=== PATIENT | female | born 1960 | race Caucasian/White ===

== ENCOUNTER 2025-01-01 07:55 | Inpatient (IN) | payer BC, SELFPAY ==
--- NOTE | 2025-01-01 | XR_ITS ---
Examination: MRI of brain with intravenous contrast TECHNIQUE: Multiple axial sagittal coronal MR images obtained including small [id number] images centered at the pituitary Exam date and time: January 01, 2025 1315 hours INDICATIONS: Onset acute diplopia and ptosis left eye dizziness nausea, suspicious for left para cavernous 10 x 18 mm mass on MRI brain January 01, 2025 1124 hours FINDINGS: There appears to be subtle additional enhancement in the anterior left para cavernous region on axial image 8 of 26, sagittal image 13 and 19 and coronal images 6 oh 17, measuring 15 x 10 x 16 mm IMPRESSION: Suspicious for abnormal enhancement in the anterior left para cavernous region, 15 x 10 x 16 mm, consider early sphenoid ridge meningioma, recommend neurology consultation and follow-up brain MRI, pre and postcontrast in 3 months
--- NOTE | 2025-01-01 | XR_ITS ---
Examinations: MRI Brain without intravenous contrast. MRA brain without intravenous contrast. MRA carotids without intravenous contrast 3-D vascular reconstructions Date and time of exam: January 01, 2025 1124 hours INDICATIONS: Onset acute diplopia, ptosis left eye, dizziness nausea elevation headaches today Technique: Multiple axial and sagittal images of the brain have been obtained MRA brain carotid images without contrast obtained, including 3-D postprocessing, vascular maximum intensity projection images Findings: [place] is not enlarged. The optic chiasm and infundibular stalk are not remarkable. Prepontine and interpeduncular cisterns are not enlarged. No localized enlargement of the medulla or nette. Fourth ventricle and cerebellar tonsils normal in position. (Left para cavernous hyperintense mass, axial image 6, sagittal image 13, measuring 10 x 18 mm Fourth ventricle is midline. Mass in the cerebellopontine angle region is not evident. 7th and 8th nerve complexes exhibits symmetry. Globes are symmetrical with no retro-orbital mass. Increased white matter signal evident, scattered punctate foci increased signal in the white matter Diffusion-weighted images demonstrate no focus of restricted diffusion Mass-effect upon the ventricular system is not identified. MRA carotid images degraded by patient motion. MRA brain images no large vessel occlusions or definite aneurysm Impression: Negative for acute hemorrhage mass effect or midline shift No acute infarct Scattered punctate foci increased signal in the white matter likely chronic microvascular white matter change Left para cavernous hyperintense mass, 10 x 18 mm, this patient should return for postcontrast small [id number] high-resolution images centered at the sella turcica
[2025-01-01 08:12] VITALS: BP 166/85; PULSE 74; RESP 18; TEMP 36.6; O2SAT 97
[2025-01-01 08:16] VITALS: BMI 32.9
--- NOTE | 2025-01-01 08:16 | EKG_ITS ---
[facility] Test Date: 2025-01-01 Pat Name: ERICK MORGAN Department: Room: - Gender: Female Vocal Performer: : 1960 Requested By: Gautam Sheffield (MYLA) Order Number: [id number] Reading MD: Gautam Sheffield (SUPERVISOR SALVAGE) Measurements Intervals [place] Rate: 65 P: 50 NM: 173 QRS: -46 QRSD: 113 T: -3 QT: 426 QTc: 443 Interpretive Statements SINUS RHYTHM PATTERN CONSISTENT WITH PULMONARY DISEASE LEFT ANTERIOR FASCICULAR BLOCK [QRS AXIS <= -45, QR IN I, RS IN II] No previous ECG available for comparison /[id number]/S0/[id number].pdf
--- NOTE | 2025-01-01 08:16 | XR_ITS ---
Examination: CT brain head without contrast. 2-D sagittal coronal reconstructions Date and time of exam:January 01, 2025 0907 hours INDICATIONS: Headaches blurred vision beginning this morning CTDI: vol (mGy):47.7 DLP: (mGycm):938 Technique: Multiple CT axial sections of the brain have been obtained, 5 mm slice thickness. Contrast has not been administered. 2-D sagittal, coronal reconstructions have been obtained Low dose protocols were performed. One or more of the following dose reduction techniques were used; automated exposure control, adjustment of the mA and/or KV according to patient size, use of iterative reconstruction technique. Findings: No significant ventricular enlargement. Intra-axial or extra-axial hemorrhage density is not seen. No mass effect or midline shift Basal cisterns are not remarkable. Fourth ventricle is midline. Cranial vault intact. Chronic ethmoid sinusitis Impression: Negative for acute hemorrhage, mass effect or midline shift As clinically warranted, consider brain MRI follow-up, stroke protocol
[2025-01-01 08:33] LABS: Collection Type, Urine Clean Catch; Squamous Epithelial Cell,Urine 0 /hpf (0-5)
[2025-01-01 08:51] LABS: Bilirubin,Urine Negative (Negative); Blood,Urine Negative (Negative); Clarity,Urine Clear (Clear/Hazy); Color,Urine Colorless (Lt Yel-Yel); Glucose, Urine Negative (Negative); Ketones,Urine Negative (Negative); Leukocyte Esterase,Urine Negative (Negative); Nitrite,Urine Negative (Negative); PH,Urine 6.5 (5.0-7.0); Protein,Urine Negative (Neg - Trace); RBC,Urine < 1 /hpf (0-3); Specific Gravity,Urine 1.005 (1.001-1.035); Urobilinogen,Urine Negative mg/dL (0.0-1.0); WBC,Urine < 1 /hpf (0-5)
[2025-01-01 08:52] LABS: Amphetamine/Methamp Scrn,U Negative (Negative); Barbiturate Screen,Urine Negative (Negative); Benzodiazepines Screen,Urine Negative (Negative); Benzoylecgonine Screen, Ur Negative (Negative); Fentanyl Screen,Urine Negative (Negative); Opiate Screen,Urine Negative (Negative); THC Screen,Urine Negative (Negative)
--- NOTE | 2025-01-01 09:54 | PD.EDADULT ---
ED General RME/HPI General Chief complaint: Dizziness Stated complaint: DIZZY, NAUSEA, SEEING DOUBLE, H/A RIGHT SIDE HEAD; Arrival date/time: 01/01/25 07:55 RME / HPI RME / HPI narrative: 64 year old female presents to the ED for complaint of dizziness beginning at 12:30 AM and worsening after waking at 05:45 AM today. Patient mentioned she was at her usual state of health yesterday and drove from [place] last night, arriving at 10:15PM. No complaints at that time. State at about 12:30AM, she began to feel a slight headache and dizziness. However significantly worse after waking at 05:45 AM. Described dizziness as a swaying sensation and like I just got off the teacup ride at [facility] . Accompanied by a headache and double vision. Additionally stated this morning she noted she was having difficulty opening her left eye with pressure sensation and the left pupil was dilated. Denies any loss of sensation or movement, head injury, change in speech, nausea, vomiting, abdominal pain, or other associated symptoms. Related Data Allergies Allergy/AdvReac Type Severity Reaction Status Date / Time No Known Allergies Allergy Verified 01/01/25 08:02 Review of Systems Review of Systems Narrative Review of Systems: Constitutional: DENIES; Fevers Eyes: SEE HPI +double vision, difficulty opening the left eye DENIES; Loss of vision Head/Ear/Nose: DENIES; Loss of hearing Throat: DENIES; Dysphagia Cardiovascular: DENIES; Chest pain, dyspnea or syncope Respiratory: DENIES; Shortness of breath Gastrointestinal: DENIES; Rectal bleeding or melena. Genitourinary: DENIES; Dysuria (painful or difficult urination) Musculoskeletal: DENIES; Arthralgia (pain in a joint),; Skin: DENIES; Rash Neurological: DENIES; Loss of function or movement Psychiatric: DENIES; recent major life stressor, emotional problem, illicit drug use or abuse Endocrinology: DENIES; Weight change Hematologic/Lymphatic: DENIES; Abnormal bruising Allergic/Immunologic: DENIES; Urticaria (hives) Past Medical History Past Medical History CARDIAC: Positive Cardiac Disorders and Hypercholesterolemia GASTROINTESTINAL: Positive Gastrointestinal Disorders and Polyps MUSCULOSKELETAL: Positive Musculoskeletal Disorders, Arthritis and Fractures ENDOCRINE: Positive Endocrine Disorders and Hypothyroidism (prev took meds. No longer taking) HEMATOLOGIC: Positive Blood Disorders and Anemia (d/t bleeding) PSYCHO/SOCIAL: Positive Depression and Anxiety OTHER HISTORY: Positive Shingles, Chicken Pox, Mumps and Cancer Surgical History SURGICAL: Positive Angiogram and Hysterectomy Social History SMOKING STATUS: Never smoker ED Exam Narrative Physical exam: Physical Exam: General: The vital signs were reviewed. The patient is non-toxic, in no apparent distress and appears healthy with a patent airway, no respiratory distress and has no apparent circulatory problems. Head & Scalp: Normocephalic, atraumatic. Face: Appears normal and is without lesions, deformity. Ears: Left external pinna appears normal. Right external pinna appears normal. Eyes: The pupil is 2 to 3 mm on the right reactive and 7 to 8 mm and reactive on the left but obviously has unequal pupils with the left revealing mydriasis. Furthermore there is ptosis on the left. And finally there is diplopia and there is loss of medial movement of the left eye but normal lateral movements of both eyes The sclera is anicteric. No obvious photophobia. The Left and Right Orbit/Lid/Conjunctiva appears normal without swelling, discoloration or injection. Nose: The nose is without deformity, discharge or tenderness; Throat: Appears normal. The mucous membranes are pink and moist without exudates, redness or mass seen. The tongue appears normal. Neck: The neck is supple and no apparent mass or adenopathy. Chest: The chest wall is normal in size and symmetry and has no chest wall tenderness or crepitus. The patient displays normal ventilator effort without retractions, accessory muscle use and has adequate air movement bilaterally with no wheezes and no rales. Cardiovascular: Regular rate and rhythm; No murmurs, rubs, or gallops; Gastrointestinal: The abdomen appears normal. No obvious hernias or mass. The abdomen is soft and benign, non-distended, with no pain, no guarding and no rebound tenderness. Bowel sounds are present and normal sounding. No CVA tenderness. Genitourinary: Back/Spine: Extremities/Musculoskeletal/lymphatic: The bilateral upper and lower extremities are warm. There is no evidence of arterial insufficiency. There is no evidence of venous insufficiency/edema. The patient spontaneously moves bilateral upper and lower extremities with no pain and no limitation of movement. There is no apparent, injury or trauma. Skin: The skin is warm, dry and intact. No rashes. No petechia. No purpura. No abnormal bruising. The color is appropriate with no cyanosis. Mental status/Psychiatric: Mental status is appropriate for age. The patient has no apparent delusions, visual hallucinations, no apparent audible hallucinations. The patient has no apparent suicidal thoughts/ideation and no apparent homicidal thoughts/ideation. Neurological: The patient is awake, alert, interactive, cordial, cooperative and is oriented to name and situation. Loss of medial rectus movement on the left eye with left eye ptosis and left eye mydriasis. There is normal facial sensation. The uvula is midline. There is no loss of sensation to the facial structures. There is no nystagmus noted. The patient follows commands and answers historical question with no impairment. There is no visual disturbance apparent. The pupils are equal and reactive bilaterally with normal eye movements and no diplopia The bilateral upper and lower extremities have normal strength, normal range of motion and normal functioning. The gait, station and balance a are reported to be normal. Course Quality Measures none Orders Category Date Time Status CT Screening NOW Care 01/01/25 12:46 Active EKG (ED ONLY) *Do not use* NOW Care 01/01/25 08:16 Completed MRI Screening NOW Care 01/01/25 10:31 Active MRI Screening NOW Care 01/01/25 12:46 Active Consult to Neurology / Tele-Neurology Stat Cons 01/01/25 14:[address] chest abdomen pelvis w Stat Exams 01/01/25 12:[address] head/brain wo con Stat Exams 01/01/25 08:16 Completed EKG (ED Only) Stat Exams 01/01/25 08:16 Draft MR brain wo MRA brn wo munguia wo Stat Exams 01/01/25 Completed MR head/brain w con Stat Exams 01/01/25 00:00 Completed B-Type Natriuretic Peptide Stat Lab 01/01/25 09:45 Completed CBC Stat Lab 01/01/25 09:45 Completed Comprehensive Metabolic Panel Stat Lab 01/01/25 09:45 Completed Drug Screen,Urine Stat Lab 01/01/25 08:25 Completed Magnesium Stat Lab 01/01/25 09:45 Completed Partial Thromboplastin Time Stat Lab 01/01/25 09:45 Completed Prothrombin Time with INR Stat Lab 01/01/25 09:45 Completed Troponin I Stat Lab 01/01/25 09:45 Completed Urinalysis Stat Lab 01/01/25 08:25 Completed VBG [Venous Blood Gas] Stat Lab 01/01/25 09:45 Completed Vital Signs Vital signs: Vital Signs Temperature 97.8 F 01/01/25 08:12 Pulse Rate 74 01/01/25 08:12 Respiratory Rate 18 01/01/25 08:12 Blood Pressure 166/85 H 01/01/25 08:12 Pulse Oximetry (%) 97 01/01/25 08:12 Oxygen Delivery Method Room Air 01/01/25 08:12 Critical Care Time Critical Care Time Critical Care Time: Yes Total Critical Care Time (min.): 50 Attestation: The high probability of sudden, clinically significant deterioration in the patient's condition required the highest level of my preparedness to intervene urgently. The services I provided to this patient were to treat and/or prevent clinically significant deterioration. Services included the following: chart data review, reviewing nursing notes and/or old charts, documentation time, work and family life consultant collaboration regarding findings and treatment options, medication orders and management, direct patient care, vital sign assessments and ordering, interpreting and reviewing diagnostic studies and lab tests. Aggregate critical care time includes only time during which I was engaged in work directly related to the patient's care, as described above, whether at bedside or elsewhere in the Emergency Department. It did not include time spent performing other reported procedures or the services of residents, students, nurses or physician assistants. Discharge Plan Plan Patient Disposition: Admit Acute Care w/in Hospital Disposition Comment: Hospitalist admit neurology Dr. Mart to consult. 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 Dickinson. This patient presents with acute onset of left eye ptosis mydriasis and loss of medial rectus movement of the left eye with diplopia with all started about midnight last night and presented to the ER approximately 7.5- 8 hours after the onset of symptoms. She is therefore not a tPA candidate and a stroke alert was not called. Since the symptoms appear to be localized to the cranial nerve #3 I also do not call a stroke alert. CT was already done which was negative. I discussed with Dr. Mart as I feel an MRI would be a more beneficial at this time and we agree the MRA should be included to rule out any aneurysm. I contacted MR and spoke with Bret and asked that they would come get this patient OLVIN Clinically patient is comfortable following commands has no obvious dysmetria. Reports to be ambulating without any difficulty other than a simple swaying motion. CBC was within normal is PT/INR within neurolyse pH is 7.29 with a pCO2 of 61 electrolytes are within normal limits kidney function is normal. Transaminases are slightly elevated 45 and 55 with a normal total bilirubin of 0.7. Urine drug screen was negative urinalysis was unremarkable. Head CT was done which reveals no acute. See report. After the initial workup we need to extend the workup to rule out aneurysm or any tumor so MRI/MRA is ordered and pending as of 1040 hrs. Patient was updated and aware of situation 1250: We reviewed todays head CT and MRI/MRA results, aware of plan to order MRI with contrast. Recontacted Dr. Mart at 1540 hrs. to review the MRI with contrast as I have no formal read at this time. Evidently this is a complex case requiring teleneurology to over read this. It most likely looks like some type of tumor or mass pushing on the nerves causing the symptoms or at least that is the best interpretation at this time. Also [address] of the chest abdomen pelvis is still pending to rule out any primary neoplasm that may be metastasized to the brain although this is much less likely diagnosis per Dr. Mart. Further consultation with Dr. Mart feels this is not a meningioma although the x-ray report from Dr. Lopez feels there was some enhancement possibly suggesting a meningioma. At this time the patient be admitted here for an LP and steroids per Dr. Mart and does not require transfer to a neurosurgeon at this time these are the plans communicated from our neurologist Dr. Mart who is on-call. Clinical Information Provided by: patient Medical Records reviewed None (No previous ED visits for review ) Meds/Rx considered, not ordered None Labs/Rad/Tests considered, not ordered None Chronic Illness/Social Conditions which may negatively complicate care or outcome(s)-explain: None or not applicable EKG EKG Interpretation(s): EKG at 08:23 AM. Interpreted by me shows sinus rhythm, rate 65, no STEMI. Labs Labs: Interpreted by me Imaging Imaging interpretation: Interpreted by me Imaging Interpretation(s): Ordering Physician: Nettie HURT)Gautam NP Date of Service: 01/01/25 Procedure(s): CT head/brain wo con Accession Number(s): [id number] cc: Nettie HURT),Gautam LANZA; Armando Del Angel MD; NO PRIMARY/FAMILY,PHYSICIAN~ Examination: CT brain head without contrast. 2-D sagittal coronal reconstructions Date and time of exam:January 01, 2025 0907 hours INDICATIONS: Headaches blurred vision beginning this morning CTDI: vol (mGy):47.7 DLP: (mGycm):938 Technique: Multiple CT axial sections of the brain have been obtained, 5 mm slice thickness. Contrast has not been administered. 2-D sagittal, coronal reconstructions have been obtained Low dose protocols were performed. One or more of the following dose reduction techniques were used; automated exposure control, adjustment of the mA and/or KV according to patient size, use of iterative reconstruction technique. Findings: No significant ventricular enlargement. Intra-axial or extra-axial hemorrhage density is not seen. No mass effect or midline shift Basal cisterns are not remarkable. Fourth ventricle is midline. Cranial vault intact. Chronic ethmoid sinusitis Impression: Negative for acute hemorrhage, mass effect or midline shift As clinically warranted, consider brain MRI follow-up, stroke protocol Dictated By: Armando Del Angel MD Signed By: <Electronically signed by Armando Del Angel MD in OV>01/01/25 0939 Consultations/Discussions re: Management Consult #1: Date/time: 01/01/25 10:27 am Physician, specialty, service, details: I spoke with neurologist Dr. Mart. Discussed patients PMHx, HPI, ED course, exam findings, labs, and radiology results. Requesting MRI/MRA. Consult #2: Date/time: 01/01/25 10:29 am Physician, specialty, service, details: I spoke with radiologist Dr. Del Angel regarding MRI/MRA order. States w/o contrast should be fine. Consult #3: Date/time: 01/01/25 10:32 am Physician, specialty, service, details: I spoke with cardiopulmonary technologist chief Bret and requested patients MRI be performed next. Consult #4: Date/time: 01/01/25 12:36 pm Physician, specialty, service, details: I spoke with radiologist Dr. Del Angel regarding MRI results, he is requesting MRI with contrast. Consult #5: Date/time: 01/01/25 2:27 pm Physician, specialty, service, details: I again spoke with neurologist Dr. Mart. Discussed MRI/MRA results and aware of the pending MRI with contrast. Diagnosis Diagnoses ruled out: Consult #6 01/01/2025 at 3:45 pm. Called cardiopulmonary technologist chief and asked ETA for brain MRI to be read. States radiologist Dr. Del Angel has sent images to [facility] and at this time pending report. Consult #7 01/01/2025 at 4:10 pm. I again spoke with neurologist Dr. Mart. States she has reviewed the brain MRI with contrast and the official report from [facility]. States she will be performing an LP later today to rule out an inflammatory process. She agrees to consult for admission here. Consult #8 01/01/2025 at 4:20 pm. I spoke with resident Dr. Trjeo working with Dr. Jones. Discussed patients PMHx, HPI, ED course, exam findings, labs, and radiology results. The hospitalist agree to accept the patient for admission. Consult #9 01/01/2025 at 4:55 pm. I spoke with radiologist Dr. Alicea brain MRI report.
[2025-01-01 10:01] VITALS: BP 126/82; PULSE 67; RESP 17; TEMP 36.5; O2SAT 95
[2025-01-01 10:01] LABS: Base Excess, Venous 1 (-3-3); O2 Saturation, Venous 68 % (96-97); PCO2, Venous 61 mmHg (36-56); PO2, Venous 37 mmHg (15-58); pH, Venous 7.29 (7.33-7.66)
[2025-01-01 10:09] LABS: Basophils % (Auto) 1 % (0-2.5); Eosinophils # (Auto) 0.2 Thou/mm3 (0.0-0.5); Eosinophils % (Auto) 3 % (0-10); Hematocrit 42.1 % (36.0-46.0); Hemoglobin 15.1 g/dL (12.0-16.0); Immature Granulocytes % (Auto) 0 % (0-0); Lymphocytes # (Auto) 2.4 Thou/mm3 (1.0-4.8); Lymphocytes % (Auto) 41 % (10-50); Mean Corpuscular HGB Conc 35.9 g/dl (31.0-37.0); Mean Corpuscular Hemoglobin 31.9 pg (25.0-35.0); Mean Corpuscular Volume 89 fL (80-100); Monocytes # (Auto) 0.5 Thou/mm3 (0.0-0.8); Monocytes % (Auto) 9 % (0-12); Neutrophils # (Auto) 2.7 Thou/mm3 (1.8-7.7); Neutrophils % (Auto) 46 % (37-80); Nucleated Red Blood Cell % 0 /100 WBC (0); Platelet Count 223 Thou/mm3 (140-440); RDW Standard Deviation 40.8 fL (36.4-46.3); Red Blood Count 4.74 Miln/mm3 (4.00-5.20); White Blood Count 5.9 Thou/mm3 (3.6-11.0)
[2025-01-01 10:28] LABS: Prothrombin Time 10.6 Seconds (9.0-12.2)
[2025-01-01 10:32] LABS: Alanine Aminotransferase 55 U/L (10-49); Albumin, Serum 4.5 gm/dL (3.4-4.8); Albumin/Globulin Ratio 1.6 (1.2-2.2); Alkaline Phosphatase 95 U/L (46-116); Anion Gap 8 (7-16); Aspartate Amino Transferase 45 U/L (0-34); BUN/Creatinine Ratio 20 Ratio (12-20); Bilirubin,Total 0.7 mg/dL (0.3-1.2); Blood Urea Nitrogen 16 mg/dL (9-23); Calcium 9.5 mg/dL (8.3-10.6); Calcium (Corrected) 9.5 mg/dL (8.5-10.1); Carbon Dioxide 26.4 mMol/L (20.0-31.0); Chloride 108 mMol/L (98-107); Creatinine (Component) 0.8 mg/dL (0.6-1.3); Estimated Creatinine Clearance 70.3 mL/min (>60); Globulin 2.8 gm/dL (2.3-3.5); Glucose 119 mg/dL (74-106); Magnesium 2.1 mg/dL (1.6-2.6); Osmolality,Calculated 285 (275-295); Potassium 3.8 mMol/L (3.4-5.1); Sodium 142 mMol/L (136-145); Total Protein 7.3 gm/dL (5.7-8.2); Troponin I < 0.002 ng/mL (0.0-0.045); eGFR > 60 See Note
[2025-01-01 10:36] LABS: B-Type Natriuretic Peptide < 20 pg/mL (0-100)
--- NOTE | 2025-01-01 10:46 | PC.NURSE ---
Biomedical Scientist: MR ordered - MR to take patient next. Spoke with RN to assure completion of screening form.
--- NOTE | 2025-01-01 12:45 | XR_ITS ---
Examination: CT chest with intravenous contrast CT abdomen with intravenous contrast CT pelvis with intravenous contrast 2-D coronal and sagittal reconstructions Time of exam: January 01, 2025 at 1508 hours, q.d. headaches shortness of breath chest pain today CTDI: vol (mGy) : 10 DLP: (mGycm): 694 Technique: Multiple axial images of the chest, abdomen and pelvis with intravenous contrast, 3.0 mm slice thickness. Images obtained post intravenous injection Isovue 370 60 cc. 2-D sagittal and coronal reconstructions. Low dose protocols were performed. One or more of the following dose reduction techniques were used; automated exposure control, adjustment of the mA and/or KV according to patient size, use of iterative reconstruction technique. Findings: Thoracic aorta pulmonary arteries intact No pulmonary artery filling defects No paratracheal tracheobronchial or bronchopulmonary adenopathy 3 mm, 2 mm pulmonary nodules right upper lobe No pneumonia or pulmonary edema No visualized liver splenic or renal lesion No gallstones No pancreatic or adrenal mass Aortic calcification no aneurysmal dilatation Normal appendix No bowel obstruction No diverticulitis Contracted urinary bladder Normal appendix No pelvic mass Moderate to advanced disc narrowing L5-S1 IMPRESSION: Small pulmonary nodules right upper lobe, with this study as baseline recommend 6 month follow-up CT chest without contrast No mediastinal lymphadenopathy No renal or ureteral calculi, no hydronephrosis Normal appendix No bowel obstruction diverticulitis or free air
[2025-01-01 14:26] VITALS: BP 143/87; PULSE 67; RESP 17; TEMP 36.6; O2SAT 96
--- NOTE | 2025-01-01 15:08 | PC.NURSE ---
PT TO CT
--- NOTE | 2025-01-01 15:53 | PRELIM_ITS ---
MRI of the brain with intravenous gadolinium. January 01, 2025 at 1315 hours Clinical history: Further evaluation of abnormal MR. Comparison: Compared with prior non-contrast MRI brain study performed earlier today at 1124 hours. Findings and Impression: No abnormal meningeal or parenchymal enhancement. Report Electronically Signed By: Jenaro Valdovinos 01/01/2025 3:51:30 PM [EST]
[2025-01-01 18:13] VITALS: BP 130/89; PULSE 70; RESP 20; TEMP 36.5; O2SAT 95
--- NOTE | 2025-01-01 18:36 | ESHP_ITS ---
<Statement entered by Gil Jones MD - 01/07/25 13:39> I reviewed above note and agree with findings and plans. I have also personally examined the patient with medicine team and went over assessment and plan with medical team including internal salesperson and resident physician. <Statement entered by Jewel Trejo MD - 01/04/25 14:04> Senior Resident Attestation: I supervised/discussed management plan with internal salesperson physician Dr. Chen, and was involved in the care of this patient. I personally saw and examined the patient and discussed the assessment and plan with the entire medicine team, including my attending. I agree with the assessment and plan as documented. Patient is a 64 years old female with PMH of familial hyperlipidemia, CAD, depression presented to the ED due to ptosis, mydriasis and double vision in left eye, CT and MRI showed hyperdense mass in the anterior left para cavernous region 10x18 mm, neurology was consulted and she was admitted for neurological work up. Patient's care was discussed with attending physician, Dr. Jones. Jewel Trejo MD PGY-2. Documentation for date of: 01/01/25 HPI History of Present Illness History of present illness: Ms. Ruff is a 64 year old female with past medical history significant for familial hyperlipidemia and single-vessel CAD angio was done in 2019 depression presented to the ED after noticing ptosis of left eye. Patient states that she has been feeling dizzy last night however she had an think much of it she thought it was due to fatigue and this morning she woke up at around 5 AM and noticed she was having double vision and ptosis of left eye. Patient states she also noticed her left pupil was dilated and worsening double vision. She also noticed she has worsening blurry vision on the left eye than the right. Denies any hemiparesis or facial droop or slurred speech. Pt noticed she has been nauseas during this duration but denies vomiting. Patient denies any previous history of similar episodes. Patient denies any pain in the left eye however she states that if feels like pressure and heaviness in that eye. Patient states when she ambulates she feels like I just got off the teacup ride at [employer] . Pt denies any recent illness or recent travel history. However patient did noticed that recently for the past 3 months she has noticed a feeling and hearing water/liquid moving in her left ear and she has noticed she has muffled hearing in that ear. Patient denies any pain but she states that there is this aching in her left ear. Patient denies any chest pain, palpitations or syncopal episodes. Patient denies any changes to her bowel habits, fever, chills or night sweats. ED course: In the ED initial vitals include blood pressure 166/85, pulse 74, respirations 18 patient is saturating on room air Labs are significant for AST 45 and ALT 55 Urine analysis and urine toxicology is negative Brain MRI: Suspicious for abnormal enhancement in the anterior left para cavernous region, 15 x 10 x 16 mm, consider early sphenoid ridge meningioma. Brain MRI with MRA: Negative for acute hemorrhage mass effect or midline shift, No acute infarct, Scattered punctate foci increased signal in the white matter likely chronic microvascular white matter change, Left para cavernous hyperintense mass, [address] Head: Negative for acute hemorrhage, mass effect or midline shift as clinically warranted, consider brain MRI follow-up, stroke protocol CT Chest/ABdomen/Pelvis: Small pulmonary nodules right upper lobe, with this study as baseline recommend 6 month follow-up CT chest without contrast No mediastinal lymphadenopathy No renal or ureteral calculi, no hydronephrosis Normal appendix No bowel obstruction diverticulitis or free air EKG: Sinus rhythm with no acute ST or T wave changes In the ED neurologist Dr. Mart was consulted and recommended to admit the patient for further workup PMH: familial hyperlipidemia and single-vessel CAD, depression PSH: C- section x1, and hysterectomy SH: Patient denies any smoking history including tobacco and marijuana, denies illicit drug use and drinks alcohol socially Home meds: Atorvastatin 80 mg daily, ezetimibe 10 mg daily, Repatha, fluoxetine 10 mg daily, bupropion to 50 mg daily, gabapentin 900 mg at bedtime, famotidine 20 mg twice daily, ivermectin topical Review of Systems Review of Systems Systems Reviewed: All systems reviewed, normal except as documented Exam Vital Signs Temp Pulse Resp BP Pulse Ox O2 Del Method 97.7 F 70 20 130/89 H 95 Room Air 01/01/25 18:13 01/01/25 18:13 01/01/25 18:13 01/01/25 18:13 01/01/25 18:13 01/01/25 18:13 Narrative Exam GENERAL: A&Ox3 . Awake, Not in acute distress NEURO:Ptosis and mydriasis noted of the left eye, no other focal neurological deficits HEENT: Atraumatic, Normocephalic. mucous membranes moist. Eyes open, symmetrical, & clear HEART: Normal Heart Sounds LUNGS: Clear to auscultation with no wheezing or crackles. ABDOMEN: soft, non-distended, non-tender, bowel sounds heard, no guarding or rebound tenderness SKIN: No Rash or ecchymoses, Verrucae Vulgaris noted bilaterally on hands EXTREMITIES: No edema, tenderness, able to move all 4 extremities, pedal pulses palpated Results: Labs 01/01/25 09:45 01/01/25 09:45 Labs: Short CBC 01/01/25 Range/Units 09:45 WBC 5.9 (3.6-11.0) Thou/mm3 Hgb 15.1 (12.0-16.0) g/dL Hct 42.1 (36.0-46.0) % Plt Count 223 (140-440) Thou/mm3 BMP 01/01/25 09:45 Sodium 142 Potassium 3.8 Chloride 108 H Carbon Dioxide 26.4 BUN 16 Creatinine 0.8 Glucose 119 H Calcium 9.5 Cardiac Enzymes 01/01/25 Range/Units 09:45 Troponin I < 0.002 (0.0-0.045) ng/mL Liver Function 01/01/25 Range/Units 09:45 Total Bilirubin 0.7 (0.3-1.2) mg/dL AST 45 H (0-34) U/L ALT 55 H (10-49) U/L Alkaline Phosphatase 95 (46-116) U/L Albumin 4.5 (3.4-4.8) gm/dL Urine 01/01/25 Range/Units 08:25 Urine Color Colorless A (Lt Yel-Yel) Urine Clarity Clear (Clear/Hazy) Urine pH 6.5 (5.0-7.0) Ur Specific [place] 1.005 (1.001-1.035) Urine Protein Negative (Neg - Trace) Urine Glucose (UA) Negative (Negative) ABG Interpretation ABG results: 01/01/25 09:45 VBG pH 7.29 L VBG pCO2 61 H VBG pO2 37 VBG Base Excess 1 Quality Measures Quality Measures none Medications Home Medications and Allergies Allergies Allergy/AdvReac Type Severity Reaction Status Date / Time No Known Allergies Allergy Verified 01/01/25 08:02 Visit Medications Acetaminophen (Acetaminophen 325 Mg Tablet) 650 mg PO Q6H PRN PRN Reason: Fever >101.5 Stop: 01/31/25 18:05 Atorvastatin Calcium (Atorvastatin Calcium 20 Mg Tablet) 80 mg PO HS NICO Stop: 01/31/25 20:59 Bupropion HCl (Bupropion Hcl 100 Mg Tablet) 250 mg PO QDAY NICO Stop: 02/01/25 08:59 Ezetimibe (Ezetimibe 10 Mg Tablet) 10 mg PO QDAY NICO Stop: 01/31/25 18:44 Famotidine (Famotidine 20 Mg Tablet) 20 mg PO BID NICO Stop: 01/31/25 20:59 Fluoxetine HCl (Fluoxetine Hcl 10 Mg Capsule) 10 mg PO QDAY NICO Stop: 02/01/25 08:59 Ondansetron HCl (Ondansetron Inj 2 Mg/Ml Inj 2 Ml) 4 mg IV Q6H PRN; Protocol PRN Reason: NAUSEA OR VOMITING Stop: 01/31/25 18:05 Assessment & Plan Plan Ms. Ruff is a 64 year old female with past medical history significant for familial hyperlipidemia and single-vessel CAD angio was done in 2019 depression presented to the ED after noticing ptosis, Mydriasis and diplopia of left eye. Pt is admitted to the hospital for further neuro work up. #Ptosis #Mydriasis #Diplopia #Brain mass -Patient has noticed dizziness, diplopia of the left eye which progressed to ptosis and mydriasis this morning. Patient denies any other neurological symptoms including hemiparesis or facial droops. -Brain MRI: Suspicious for abnormal enhancement in the anterior left para cavernous region, 15 x 10 x 16 mm, consider early sphenoid ridge meningioma. -Brain MRI with MRA: Scattered punctate foci increased signal in the white matter likely chronic microvascular white matter change, Left para cavernous hyperintense mass, 10 x 18 mm -CT Head: Negative for acute hemorrhage, mass effect or midline shift as clinically warranted, consider brain MRI follow-up, stroke protocol -CT Chest/ABdomen/Pelvis: Small pulmonary nodules right upper lobe Plan: -Neurology consulted by ED, appreciated recommendations -Discussed with Neurology regarding transferring patient for neurosurgical intervention however per neuro would like pt to be admitted for further work up -Lumbar punction is planned for tonight by Neuro #Transiminitis -AST 45 adn ALT 55 -Pt denies any history of liver disease, denies RUQ pain -Will monitor daily CMP #Depression -resumed home fluoxetine and Bupropion #familial Hyperlipidemia #CAD, single vessel -Resumed pt's home Atorvastatin 80 mg daily, ezetimibe 10 mg daily and will hold rapatha (due to not available inpatient pharmacy) -resumed home aspirin -Lipid panel for am labs ordered -EKG is sinus rhythm with no acute ST or T wave changes #Pulmonary mass -CT of chest is evident of pulmonary nodules, however pt denies history of smoking tobacco -No previous imaging is available to compare -Pt will need to follow up outpatient for repeat imaging in 6 months and further work up if necessary -Cocci IgM ordered Health Maintenance Disposition: telemetry for further neuro work up DVT Prophylaxis: SCD QSHIFT GI Prophylaxis: Famotidine BID Diet: regular diet Lines: Peripheral lines Code status: Full Assessment and plan discussed with my senior resident Dr. Trejo & attending physician Dr. Robert Chen (PGY-1)- Internal medicine resident
[2025-01-01] MEDS: EZETIMIBE 10 MG TABLET PO (20:04)
[2025-01-01 21:52] LABS: Coccid Serology, CF CSF (UCD)* See Sep Rpt
[2025-01-01 22:09] VITALS: BP 132/81; PULSE 77; RESP 20; TEMP 36.6; O2SAT 98
[2025-01-01 22:41] LABS: Glucose,CSF 69 mg/dL (40-70); Protein Total,CSF 37 mg/dL (8-32)
--- NOTE | 2025-01-01 23:31 | PD.NEUROCONS ---
History of Present Illness Data of Consult Requesting Physician: Gil Jones MD Primary Care Provider: Physician No Primary/Family Consult Narrative History of present illness: 64 year old female presents to the ED for complaint of dizziness beginning at 12:30 AM and worsening after waking at 05:45 AM today. Patient mentioned she was at her usual state of health yesterday and drove from [place] last night, arriving at 10:15PM. No complaints at that time. State at about 12:30AM, she began to feel a slight headache and dizziness. However significantly worse after waking at 05:45 AM. Described dizziness as a swaying sensation and like I just got off the teacup ride at [facility] . Accompanied by a headache and double vision. Additionally stated this morning she noted she was having difficulty opening her left eye with pressure sensation and the left pupil was dilated. Denies any loss of sensation or movement, head injury, change in speech, nausea, vomiting, abdominal pain, or other associated symptoms. ER workup: CT, MRI brain, EEG, MRI, MRA cc:: cc: Gil Jones MD Review of Systems Review of Systems Systems Reviewed: All systems reviewed, normal except as documented Meds Home Medications and Allergies Home Medications ?Medication ?Instructions ?Recorded ?Confirmed ?Type aspirin 81 mg capsule 81 mg PO QDAY 01/01/25 01/01/25 History atorvastatin 80 mg tablet 80 mg PO QDAY 01/01/25 01/01/25 History bupropion HCl 150 mg tablet,12 hr See Rx Instructions .Route .COMPLEX 01/01/25 01/01/25 History sustained-release evolocumab 140 mg/mL subcutaneous 420 mg subcut .[id number] 01/01/25 01/01/25 History syringe (Repatha Syringe) ezetimibe 10 mg tablet (Zetia) 10 mg PO QDAY 01/01/25 01/01/25 History famotidine 10 mg tablet 10 mg PO QDAY 01/01/25 01/01/25 History fluoxetine 10 mg capsule 20 mg PO QDAY 01/01/25 01/01/25 History fluoxetine 20 mg capsule 10 mg PO QDAY 01/01/25 01/01/25 History gabapentin 600 mg tablet 900 mg PO HS 01/01/25 01/01/25 History metoprolol succinate 25 mg 25 mg PO QDAY 01/01/25 01/01/25 History tablet,extended release 24 hr Allergies Allergy/AdvReac Type Severity Reaction Status Date / Time No Known Allergies Allergy Verified 01/01/25 08:02 Exam - Neurology Vital Signs Temp Pulse Resp BP Pulse Ox O2 Del Method 98 F 77 20 132/81 H 98 Room Air 01/01/25 22:09 01/01/25 22:09 01/01/25 22:09 01/01/25 22:09 01/01/25 22:09 01/01/25 22:09 Narrative Exam GENERAL APPEARANCE: Well hydrated, well-nourished in no acute distress. HEENT: Normocephalic, atraumatic, extraocular movements intact. Pupils: Equal reacting to light and accommodation CARDIOVASULAR: Heart: S1, S2 heard, regular without S3-S4 or murmur no rubs or gallops. LUNGS/CHEST: Clear to auscultation bilaterally. No rails, rhonchi, or wheezing. Normal inspection. ABDOMEN: Soft, nontender, with normal bowel sounds. No pulsatile masses. No rebound, rigidity, or guarding. Normal inspection and palpation. EXTREMITIES: Normal inspection and palpation. No edema, clubbing or cyanosis. SKIN: Warm and dry without rashes. Normal inspection. MUSCULOSKELETAL: No cervical, thoracic, lumbar or midline bony tenderness. Normal inspection. NEURO: Alert, awake and oriented x3. Cranial nerves: II through XII grossly intact with the exception of partial left 3rd nerve palsy. Speech and language: Normal with no dysarthria or dysphasia. Motor system: Tone and bulk: Normal: Strength: 5 out of 5 in all 4 extremities; No pronator drift noted. Deep tendon reflexes: 2+ bilaterally symmetrical. Plantar reflex: Downgoing bilaterally. Sensory system: Intact to all modalities of sensation bilaterally. Coordination: Intact to kljhjg-clma-belrx and hglx-wvek-giss test bilaterally. No ataxia, no dysmetria, or dysdiadochokinesia noted. No intention tremors noted. Gait: Normal. Toe, heel, tandem walk all are normal. Romberg: Negative. No signs of meningeal irritation noted. PSYCHIATRIC: Normal mood and affect. Results Labs 01/01/25 09:45 01/01/25 09:45 Labs: Short CBC 01/01/25 Range/Units 09:45 WBC 5.9 (3.6-11.0) Thou/mm3 Hgb 15.1 (12.0-16.0) g/dL Hct 42.1 (36.0-46.0) % Plt Count 223 (140-440) Thou/mm3 BMP 01/01/25 09:45 Sodium 142 Potassium 3.8 Chloride 108 H Carbon Dioxide 26.4 BUN 16 Creatinine 0.8 Glucose 119 H Calcium 9.5 Cardiac Enzymes 01/01/25 Range/Units 09:45 Troponin I < 0.002 (0.0-0.045) ng/mL Liver Function 01/01/25 Range/Units 09:45 Total Bilirubin 0.7 (0.3-1.2) mg/dL AST 45 H (0-34) U/L ALT 55 H (10-49) U/L Alkaline Phosphatase 95 (46-116) U/L Albumin 4.5 (3.4-4.8) gm/dL Urine 01/01/25 Range/Units 08:25 Urine Color Colorless A (Lt Yel-Yel) Urine Clarity Clear (Clear/Hazy) Urine pH 6.5 (5.0-7.0) Ur Specific [place] 1.005 (1.001-1.035) Urine Protein Negative (Neg - Trace) Urine Glucose (UA) Negative (Negative) ABG Interpretation ABG results: 01/01/25 09:45 VBG pH 7.29 L VBG pCO2 61 H VBG pO2 37 VBG Base Excess 1 Assessment & Plan Assessment and plan (1) 3rd nerve palsy, partial: Status: Acute Assessment and plan: LP Labs to look for infection, inflammation, vascular/ischemic, neoplastic/demyelinating causes Added Decadran 4 mg bid. Plan to do Repeat MRI brain in 3-4 weeks. (2) Cavernous sinus tumor: Status: Acute Assessment and plan: nonenhancing mass in the left cavernous sinus, unlikely to be meningioma unless it is microcystic type.
--- NOTE | 2025-01-01 23:31 | PD.EVENT ---
Documentation for date of: 01/01/25 Date of procedure: 01/01/25 Pre-op diagnosis: Cavernous sinus lesion/3RD nerve palsy Consent signed by: Patient Position: lateral decubitus Prep: betadine Anesthesia: 1 % Lidocaine Sedation: none Needle size: 22ga Needle length: 3.5 Interspace: L3-4 Number of attempts: 1 Opening pressure: # cm H2O (19) Fluids mLs collected: 14 Fluid description: clear Complications: No Patient tolerance: tolerated the procedure well Procedure performed by: Zacarias Mart Condition: Stable Disposition: other (Med surg)
[2025-01-01] MEDS: ATORVASTATIN CALCIUM 20 MG TABLET 80 MG PO (23:59)
[2025-01-01] MEDS: MELATONIN 3 MG TABLET PO (23:59)
[2025-01-01] MEDS: dexAMETHasone 4 MG TABLET PO (23:59)
[2025-01-01] MEDS: GABAPENTIN 300 MG CAPSULE 900 MG PO (23:59)
[2025-01-02] VITALS (7 sets, daily range): BP systolic 116–126; BP diastolic 83–93; PULSE 75–103; RESP 17–94; TEMP 36.3–36.5; O2SAT 93–96; BMI 34.0; BMI 35.4
[2025-01-02] LABS: Sed Rate (ESR) 17 mm/hr (0-30)
[2025-01-02 00:31] LABS: CSF Red Blood Cell 0 /cmm; CSF White Blood Cell 2 /cmm
[2025-01-02 00:34] LABS: CSF Cell Count Tube # Tube #3
[2025-01-02 00:35] LABS: CSF Color Colorless (Colorless); CSF Gram Stain Alert Gram Stain Completed; CSF Polynuclear WBC 0 %; CSF, Appearance Clear (Clear)
[2025-01-02 01:15] LABS: C-Reactive Protein < 0.5 mg/dL (0.0-0.9)
[2025-01-02 06:01] LABS: Basophils % (Auto) 0 % (0-2.5); Eosinophils % (Auto) 0 % (0-10); Hematocrit 43.2 % (36.0-46.0); Hemoglobin 15.3 g/dL (12.0-16.0); Immature Granulocytes % (Auto) 0 % (0-0); Immature Granulocytes Auto 0.02 Thou/mm3 (0.00-0.00); Lymphocytes # (Auto) 1.3 Thou/mm3 (1.0-4.8); Lymphocytes % (Auto) 18 % (10-50); Mean Corpuscular HGB Conc 35.4 g/dl (31.0-37.0); Mean Corpuscular Volume 90 fL (80-100); Monocytes # (Auto) 0.2 Thou/mm3 (0.0-0.8); Monocytes % (Auto) 3 % (0-12); Neutrophils # (Auto) 5.8 Thou/mm3 (1.8-7.7); Neutrophils % (Auto) 79 % (37-80); Nucleated Red Blood Cell % 0 /100 WBC (0); Platelet Count 218 Thou/mm3 (140-440); RDW Standard Deviation 41.7 fL (36.4-46.3); Red Blood Count 4.78 Miln/mm3 (4.00-5.20); White Blood Count 7.4 Thou/mm3 (3.6-11.0)
[2025-01-02 06:21] LABS: Alanine Aminotransferase 58 U/L (10-49); Albumin, Serum 4.5 gm/dL (3.4-4.8); Albumin/Globulin Ratio 1.7 (1.2-2.2); Alkaline Phosphatase 91 U/L (46-116); Anion Gap 8 (7-16); Aspartate Amino Transferase 45 U/L (0-34); BUN/Creatinine Ratio 20 Ratio (12-20); Bilirubin,Total 0.6 mg/dL (0.3-1.2); Blood Urea Nitrogen 14 mg/dL (9-23); Calcium 9.6 mg/dL (8.3-10.6); Calcium (Corrected) 9.6 mg/dL (8.5-10.1); Carbon Dioxide 24.9 mMol/L (20.0-31.0); Cardiac Risk Estimate 4.9 RATIO (3.7-5.6); Chloride 107 mMol/L (98-107); Cholesterol 211 mg/dL (132-200); Creatinine (Component) 0.7 mg/dL (0.6-1.3); Estimated Creatinine Clearance 83.6 mL/min (>60); Globulin 2.7 gm/dL (2.3-3.5); Glucose 148 mg/dL (74-106); HDL Cholesterol 43 mg/dL (40-60); LDL Cholesterol,Calculated 135 mg/dL (0-130); Osmolality,Calculated 282 (275-295); Phosphorous 3.1 mg/dL (2.4-5.1); Potassium 4.2 mMol/L (3.4-5.1); Sodium 140 mMol/L (136-145); Thyroid Stimulating Hormone 1.24 uIU/mL (0.55-4.78); Total Protein 7.2 gm/dL (5.7-8.2); Triglycerides 163 mg/dL (30-150); eGFR > 60 See Note
[2025-01-02] MEDS: FLUoxetine HCL 10 MG CAPSULE PO (08:41)
[2025-01-02] MEDS: FAMOTIDINE 20 MG TABLET PO ×2 (08:42)
[2025-01-02] MEDS: ASPIRIN EC 81 MG TABEC PO (08:42)
[2025-01-02] MEDS: BUPROPION HCL 150 MG PO (08:42)
[2025-01-02] MEDS: EZETIMIBE 10 MG TABLET PO (08:42)
[2025-01-02] MEDS: dexAMETHasone 4 MG TABLET PO (08:56)
[2025-01-02] MEDS: METOPROLOL SUCCINATE XL 25 MG TABCR PO (09:27)
--- NOTE | 2025-01-02 10:32 | PC.SS ---
Patient Luiza Ruff is a 64 Y/O female admitted for Brain Mass. SS met with patient at bedside to discuss discharge plan. Patient appeared to be alert and oriented. Patient reports she lives at home with her . Patient is not from [facility], patient was visiting family. Patient lives in [place] and is established with PCP in [facility]. Patient reports she her , Jose Ruff is her surrogate decision maker [phone] Patient is able to complete ADL's independently. Patient does not utilize any source of DME. Patients choice of pharmacy is [facility]. At time of discharge patient will discharge home. will provide transportation. Discharge plan: Home Next of Kin: , Jose Ruff [phone].
--- NOTE | 2025-01-02 12:54 | ESDS_ITS ---
<Statement entered by Gil Jones MD - 01/08/25 09:29> I reviewed above note and agree with findings and plans. I have also personally examined the patient with medicine team and went over assessment and plan with medical team including project intern and resident physician. Planned Discharge Date 01/02/25 DS: Providers Provider Date of admission: 01/01/25 18:00 Primary care physician: Physician No Primary/Family Admitting Provider: Gil Jones MD Attending Provider on Admission: Gil Jones MD Consults: 01/01/25 14:27 Consult to Neurology / Tele-Neurology Stat Comment: Consulting Provider: Zacarias Mart Attending Provider on DC: Mayra Chen MD Discharging Provider: Mayra Chen MD DS: Diagnosis Problem List Completed Was Problem List Reviewed/Reconciled?: Yes Hospital Course Hospital Course Hospital course: Ms. Ruff is a 64 year old female with past medical history significant for familial hyperlipidemia and single-vessel CAD angio was done in 2019 depression presented to [facility] ED on 01/01/25 after noticing ptosis mydriases and diplopia. The patient did not report any symptoms of hemiparesis, slurred speech, or other neurological deficits. A head CT scan was performed and showed no evidence of acute hemorrhage, mass effect, or midline shift. Brain MRI revealed a suspicious abnormal enhancement in the anterior left para-cavernous region. An MRI with MRA excluded acute hemorrhage or infarct but identified scattered punctate foci of increased signal in the white matter, suggestive of chronic microvascular changes, and a hyperintense mass in the left para- cavernous region measuring [address] scans of the chest, abdomen, and pelvis revealed small pulmonary nodules in the right upper lobe. A neurology consultation was obtained, and Dr. Mart evaluated the patient. A lumbar puncture was performed, with results within normal limits, except for a mild elevation in CSF total protein (37 mg/dL). Cocci IgM was negative, and other CSF analyses were sent for further testing. Per Dr. Mart?s recommendation, the patient is stable for discharge and will be prescribed a two-week course of steroids. The patient is advised to follow up with Dr. Mart in two weeks, at which time the steroid taper will continue. Additionally, the patient is advised to follow up with primary care for further evaluation of the pulmonary nodules identified on CT. The patient is ambulating without difficulty and reports some improvement in symptoms. However, she continues to experience ptosis, and her pupils are now sluggishly reactive. She is discharged home with instructions for self-care. Discharge Recommendations -Follow up with your primary care within 2 weeks after discharge -Follow up with neurologist Dr. Mart in 2 weeks -You have been prescribed steroids for 2 weeks which will you take and Dr. Mart will start you on taper outpatient after 2 weeks. -Take all your medications as prescribed -If your symptoms return or worsen please return to the ED promptly Hospitalization Diagnosis #Ptosis #Mydriasis #Diplopia #Brain mass #Transiminitis #Depression #familial Hyperlipidemia #CAD, single vessel #Pulmonary mass Assessment and plan discussed with my attending physician Dr. Robert Chen (PGY-1)- Internal medicine resident Time Spent with Patient Time attestation: Total time spent providing and/or coordinating discharge services: Time spent: Greater than 30 minutes Exam Vital Signs Temp Pulse Resp BP Pulse Ox O2 Del Method 97.4 F 103 H 18 116/85 H 93 L Room Air 01/02/25 08:00 01/02/25 09:27 01/02/25 08:21 01/02/25 09:27 01/02/25 08:00 01/02/25 08:00 Narrative Exam GENERAL: A&Ox3 . Awake, Not in acute distress NEURO:Ptosis and mydriasis noted of the left eye with pupil is sluggishly reactive, no other focal neurological deficits HEENT: Atraumatic, Normocephalic. mucous membranes moist. Eyes open, symmetrical, & clear HEART: Normal Heart Sounds LUNGS: Clear to auscultation with no wheezing or crackles. ABDOMEN: soft, non-distended, non-tender, bowel sounds heard, no guarding or rebound tenderness SKIN: No Rash or ecchymoses, Verrucae Vulgaris noted bilaterally on hands EXTREMITIES: No edema, tenderness, able to move all 4 extremities, pedal pulses palpated Discharge Plan Plan Patient Disposition: HOME (Self Care) Disposition Comment: Hospitalist admit neurology Dr. Mart to consult. Care Plan Goals: -Follow up with your primary care within 2 weeks after discharge -Follow up with neurologist Dr. Mart in 2 weeks -You have been prescribed steroids for 2 weeks which will you take and Dr. Mart will start you on taper outpatient after 2 weeks. -Take all your medications as prescribed -If your symptoms return or worsen please return to the ED promptly Prescriptions/Referrals Prescriptions/Med Rec: New dexamethasone 4 mg Tablet 4 mg PO BID 13 Days Qty: 26 0RF Continued atorvastatin 80 mg tablet 80 mg PO QDAY metoprolol succinate 25 mg tablet extended release 24 hr 25 mg PO QDAY bupropion HCl 150 mg tablet sustained-release 12 hr See Rx Instructions .ROUTE .COMPLEX Rx Instructions: 250mg QD; fluoxetine 10 mg capsule 20 mg PO QDAY gabapentin 600 mg tablet 900 mg PO HS aspirin 81 mg capsule 81 mg PO QDAY ezetimibe [Zetia] 10 mg tablet 10 mg PO QDAY Repatha Syringe 140 mg/mL syringe 420 mg subcut .[id number] famotidine 10 mg tablet 10 mg PO QDAY fluoxetine 20 mg capsule 10 mg PO QDAY Referrals: No Primary/Family,Physician [Primary Care Provider] - Patient/Caregiver Discharge Instructions Print Language: Hong Konger Stand Alone Forms: Janelle Award Info., Patient Portal Info Letter Discharge Order Discharge Orders: Discharge (Routine); Ordered 01/02/25 Ordered By: Mayra Chen Quality Discharge Quality Measures VTE prophylaxis
[2025-01-02 12:58] LABS: Cocci Serology, IgM Negative (Negative)
--- NOTE | 2025-01-02 13:51 | PD.RESPRO ---
Documentation for date of: 01/02/25 Subjective Subjective Interval history: Patient seen and examined at bedside. No acute overnight events. She reports that there is a slight impovement in her vision and it is no longer as blurry as it was on admission. Still endorses diplopia LP was done yesterday to rule out infectious and other causes. Slighly elevated protein at 37, otherwise normal. Pending remainder of CSF studies. Will continue steroids for two more weeks with a taper and follow up as an outpatient. Recommend repeating MRI within 3-4weeks to re-evaluate cavernnous mass. Exam Vital Signs Temp Pulse Resp BP Pulse Ox O2 Del Method 97.5 F 87 17 126/93 H 94 L Room Air 01/02/25 12:00 01/02/25 12:00 01/02/25 12:00 01/02/25 12:00 01/02/25 12:00 01/02/25 12:00 Narrative Exam GENERAL: AAOX3 NEURO: Strength and sensation preserved in all extremities. 3rd nerve palsy, other CN grossly intact HEENT: Moist mucosa. Ptosis in left eye, dilated left pupil CARDIO: No chest pain on palpation. Heart RRR, no obvious murmurs PULM: No noted coughing/dyspnea. Lungs CTA B/L GI: Abdomen soft, nondistended, no pain on palpation. BSx4 URO/RN ADVANCED:: No further abnormalities noted. SKIN/MSK/EXT: No wounds/rashes/edema/amputations, no pain on palpation. Pedal pulses present B/L Objective Labs 01/02/25 04:16 01/02/25 04:16 Labs: Laboratory Results - last 24 hr 01/01/25 01/01/25 01/01/25 19:44 20:15 22:10 WBC RBC Hgb Hct MCV MCH MCHC RDW Std Deviation Plt Count Neut % (Auto) Lymph % (Auto) [place] % (Auto) Eos % (Auto) Baso % (Auto) Neut # (Auto) Lymph # (Auto) [place] # (Auto) Eos # (Auto) Baso # (Auto) Immature Gran # (Auto) Absolute Nucleated RBC Immature Gran % Nucleated RBC % ESR 17 Sodium Potassium Chloride Carbon Dioxide Anion Gap BUN Creatinine Estim Creat Clear Calc eGFR BUN/Creatinine Ratio Glucose Calculated Osmolality Calcium Corrected Calcium Phosphorus Magnesium Total Bilirubin AST ALT Alkaline Phosphatase C-Reactive Prot, Quant < 0.5 Total Protein Albumin Globulin Albumin/Globulin Ratio Triglycerides Cholesterol LDL Cholesterol, Calc HDL Cholesterol Cholesterol/HDL Ratio TSH CSF Appearance Clear CSF Color Colorless CSF WBC 2 CSF RBC 0 CSF Cell Count Tube # Tube #3 CSF Mononuclear WBCs 100.0 CSF Polynuclear WBCs 0 CSF Glucose 69 CSF Total Protein 37 H Coccidioides IgM Ab Negative 01/02/25 04:16 WBC 7.4 RBC 4.78 Hgb 15.3 Hct 43.2 MCV 90 MCH 32.0 MCHC 35.4 RDW Std Deviation 41.7 Plt Count 218 Neut % (Auto) 79 Lymph % (Auto) 18 [place] % (Auto) 3 Eos % (Auto) 0 Baso % (Auto) 0 Neut # (Auto) 5.8 Lymph # (Auto) 1.3 [place] # (Auto) 0.2 Eos # (Auto) 0.0 Baso # (Auto) 0.0 Immature Gran # (Auto) 0.02 H Absolute Nucleated RBC 0.00 Immature Gran % 0 Nucleated RBC % 0 ESR Sodium 140 Potassium 4.2 Chloride 107 Carbon Dioxide 24.9 Anion Gap 8 BUN 14 Creatinine 0.7 Estim Creat Clear Calc 83.6 eGFR > 60 BUN/Creatinine Ratio 20 Glucose 148 H Calculated Osmolality 282 Calcium 9.6 Corrected Calcium 9.6 Phosphorus 3.1 Magnesium 2.0 Total Bilirubin 0.6 AST 45 H ALT 58 H Alkaline Phosphatase 91 C-Reactive Prot, Quant Total Protein 7.2 Albumin 4.5 Globulin 2.7 Albumin/Globulin Ratio 1.7 Triglycerides 163 H Cholesterol 211 H LDL Cholesterol, Calc 135 H HDL Cholesterol 43 Cholesterol/HDL Ratio 4.9 TSH 1.24 CSF Appearance CSF Color CSF WBC CSF RBC CSF Cell Count Tube # CSF Mononuclear WBCs CSF Polynuclear WBCs CSF Glucose CSF Total Protein Coccidioides IgM Ab ABG Interpretation ABG results: 01/01/25 09:45 VBG pH 7.29 L VBG pCO2 61 H VBG pO2 37 VBG Base Excess 1 Quality Measures Quality Measures none Assessment & Plan Assessment Current Active Medications: Generic Name Dose Route Start Last Admin Trade Name Freq PRN Reason Stop Dose Admin Acetaminophen 650 mg 01/01/25 18:06 Acetaminophen 325 Mg Tablet PO 01/31/25 18:05 Q6H PRN Fever >101.5 Aspirin 81 mg 01/02/25 09:00 01/02/25 08:42 Aspirin Ec 81 Mg Tabec PO 02/01/25 08:59 81 mg QDAY NICO Administration Atorvastatin Calcium 80 mg 01/01/25 21:00 01/01/25 23:59 Atorvastatin Calcium 20 Mg Tablet PO 01/31/25 20:59 80 mg HS NICO Administration Bupropion HCl 150 mg 01/02/25 09:00 01/02/25 08:42 Bupropion Hcl Sr 150 Mg Tabcr PO 02/01/25 08:59 150 mg QDAY NICO Administration Dexamethasone 4 mg 01/01/25 21:00 01/02/25 08:56 Dexamethasone 4 Mg Tablet PO 01/31/25 20:59 4 mg BID NICO Administration Protocol Ezetimibe 10 mg 01/01/25 18:45 01/02/25 08:42 Ezetimibe 10 Mg Tablet PO 01/31/25 18:44 10 mg QDAY NICO Administration Famotidine 20 mg 01/01/25 21:00 01/02/25 08:42 Famotidine 20 Mg Tablet PO 01/31/25 20:59 20 mg BID NICO Administration Fluoxetine HCl 10 mg 01/02/25 09:00 01/02/25 08:41 Fluoxetine Hcl 10 Mg Capsule PO 02/01/25 08:59 10 mg QDAY NICO Administration Gabapentin 900 mg 01/01/25 23:50 01/01/25 23:59 Gabapentin 300 Mg Capsule PO 01/31/25 23:49 900 mg HS NICO Administration Melatonin 3 mg 01/01/25 23:50 01/01/25 23:59 Melatonin 3 Mg Tablet PO 01/31/25 23:49 3 mg HS NICO Administration Metoprolol Succinate 25 mg 01/02/25 09:00 01/02/25 09:27 Metoprolol Succinate Xl 25 Mg Tabcr PO 02/01/25 08:59 25 mg QDAY NICO Administration Ondansetron HCl 4 mg 01/01/25 18:06 Ondansetron Inj 2 Mg/Ml Inj 2 Ml IV 01/31/25 18:05 Q6H PRN NAUSEA OR VOMITING Protocol Plan Summary: The patient is a 64year old female with a past medical history of familial hyperlipidemia and single-vessel CAD, depression , chronic back and knee pain who presented to the ED on 01/01/2025 after with complaints of headache, dipolopia and ptosis of the left eye. Admitted to evaluate 3rd nerve palsy and cavernous mass. #3rd nerve Palsy #Diplopia #Cavernous sinus mass The patient presented to the ED after she experienced a headache shortly before going to bed the night befor presnting o the ED. She has reportedly been on a drive but was fairly well until she had a headache located on the left side of the head about a 7/10 in severity. Shortly after, she had some blurriness in her vision as well as diplopia and then noticed a dropping in her left eyelid. On examination, had ptosis and mydriasis. Head CT was done which showed no hemorrhage or infarct. An initial MRI/A showed a hyperdence mass in the cavernous sinous, however follow up contrast MRI showed no enhancement of the mass making meningioma less likely. Patient had an LP done to rule out other etiologies, slightly elevated protein, otherwis normal. Pending other results. Started on Dexamethasone Plan: -Continue on Decadron for two more weeks -Follow up with Neurology as an outpatient -Will need to repeat MRI within 3-4weeks Case was discussed with attending physician, Dr Brittny Martinez MD PGY-1 Disclaimer: This note was dictated by speech recognition. Minor errors in lease purchase driver may be present due to voice recognition software. Attending Provider Attestation/Addendum I personally have seen and examined the patient at the bedside and I agreed with resident's findings, assessment and plan of care. contiune Decadran for now and repeat MRI in 3 weeks. FU in 2 weeks with results of the CSF to make the determination regards to [facility]/tertiary clinic referral.
[2025-01-03 11:28] LABS: Cocci Serology, IgG Negative (Negative)
[2025-01-04 13:50] LABS: Albumin, CSF 20.9 mg/dL (8.0-42.0); IgG Index, CSF 0.88 (<0.70); IgG, CSF 4.3 mg/dL (0.8-7.7); IgG, Serum 1020 mg/dL (600-1540)
[2025-01-06 07:04] LABS: Albumin, Serum 4.4 g/dL (3.6-5.1)
[2025-01-08 07:06] LABS: VDRL, CSF Qual* NON-REACTIVE
[2025-01-10 06:48] LABS: Angiotensin Convert Enz, CSF* <5 U/L (< OR = 15); Myelin Basic Protein, CSF* <2.0 mcg/L (< OR = 4.0); Oligoclonal Bands, CSF* ABSENT (ABSENT)
== END 2025-01-02 14:01 | disposition home or self-care (01) | DRG 55 ==
LOC: SERX 17:24 → SERHOLD 18:19 → S3NX 22:51
PROVIDERS: Nurse Practitioner Primary Care; Psychiatry & Neurology Neurology; Admitting Provider Internal Medicine; Emergency Provider Emergency Medicine; Visit Provider Internal Medicine
DX: D32.9 Benign neoplasm of meninges, unspecified (principal); H49.02 Third [oculomotor] nerve palsy, left eye; E78.49 Other hyperlipidemia; I25.10 Atherosclerotic heart disease of native coronary artery without angina pectoris; F32.A Depression, unspecified; H02.402 Unspecified ptosis of left eyelid; R91.8 Other nonspecific abnormal finding of lung field; G93.9 Disorder of brain, unspecified; H57.04 Mydriasis; Z79.82 Long term (current) use of aspirin; Z79.899 Other long term (current) drug therapy; Z90.710 Acquired absence of both cervix and uterus
CPT/HCPCS: 36415; 70450; 70544; 70552; 71260; 74177; 80053; 80061; 80307; 81001; 82040; 82042; 82164; 82784; 82803; 82945; 83735; 83873; 83880; 83916; 84100; 84157; 84443; 84484; 85025; 85610; 85652; 85730; 86140; 86171; 86331; 86592; 86635; 87070; 87205; 89051; 93005; 93225; 99291; A4649; A9579; J8540; Q9967; A9270

== ENCOUNTER 2025-01-16 13:44 | Outpatient (AMB) | payer BC, SELFPAY ==
[2025-01-16 14:31] VITALS: BP 122/71; PULSE 57; RESP 18; TEMP 36.4; O2SAT 95; BMI 32.4
--- NOTE | 2025-01-16 14:31 | PD.RESCLINIC ---
Vital Signs 01/16/25 14:31 Height 1.63 m Height Method Stated Weight 85.786 kg Weight Measurement Method Standing Scale BMI 32.4 BP 122/71 Blood Pressure Source Automatic Cuff Blood Pressure Location Right Upper Arm Position Sitting Respiration 18 Pulse 57 L Pulse Source Monitor Temp 97.5 F Temp Source Temporal Artery Scan Pulse Oximetry (%) 95 Oxygen Delivery Method Room Air Allergies/Meds Allergies & Medications Allergies No Known Allergies Allergy (Verified 01/16/25 15:11) Medication Reconciliation aspirin 81 mg capsule 81 mg PO QDAY 01/01/25 [History Confirmed 01/16/25] atorvastatin 80 mg tablet 80 mg PO QDAY 01/01/25 [History Confirmed 01/16/25] bupropion HCl 150 mg tablet,12 hr sustained-release See Rx Instructions .Route .COMPLEX 01/01/25 [History Confirmed 01/16/25] evolocumab 140 mg/mL subcutaneous syringe (Repatha Syringe) 420 mg subcut .[id number] 01/01/25 [History Confirmed 01/16/25] ezetimibe 10 mg tablet (Zetia) 10 mg PO QDAY 01/01/25 [History Confirmed 01/16/25] famotidine 10 mg tablet 10 mg PO QDAY 01/01/25 [History Confirmed 01/16/25] fluoxetine 10 mg capsule 20 mg PO QDAY 01/01/25 [History Confirmed 01/16/25] fluoxetine 20 mg capsule 10 mg PO QDAY 01/01/25 [History Confirmed 01/16/25] gabapentin 600 mg tablet 900 mg PO HS 01/01/25 [History Confirmed 01/16/25] metoprolol succinate 25 mg tablet,extended release 24 hr 25 mg PO QDAY 01/01/25 [History Confirmed 01/16/25] omeprazole 20 mg capsule,delayed release 20 mg PO QDAY #30 caps 01/16/25 [Rx] MA Intake Visit Data Collection New Patient or Established: Established Patient (seen at [facility] within 3 years) Seen by Clinical Staff ONLY (RN/MA): No Pain Present Currently: No Pain scale:: 0 Pain Scale Used: [place]/Numerical [employer] Required: No PCP or OBGYN visit in last 3 months: No Hx Now: No Do You Feel Safe at Home: Yes Authorities Contacted: N/A Smoking Status Smoking Status: Never smoker Immunization / Flu Flu Vaccine in the Last 12 Months: No Flu Vaccine Exclusion Criteria: No Exclusion Criteria Past Medical History Past Medical History NEUROLOGIC: Negative Neurological Disorders CARDIAC: Positive Cardiac Disorders and Hypercholesterolemia; Negative Congestive Heart Failure RESPIRATORY: Negative Chronic Obstructive Pulmonary Disease (COPD) or Asthma GASTROINTESTINAL: Positive Gastrointestinal Disorders GENITOURINARY: Negative Genitourinary Disorders or Renal Disease MUSCULOSKELETAL: Positive Arthritis and Fractures ENDOCRINE: Positive Hypothyroidism (prev took meds. No longer taking); Negative Endocrine Disorders, Diabetes Mellitus Type 1 or Diabetes Mellitus Type 2 HEMATOLOGIC: Positive Anemia (d/t bleeding); Negative Blood Disorders or Sickle Cell Disease PSYCHO/SOCIAL: Positive Depression and Anxiety OTHER HISTORY: Positive Shingles, Chicken Pox, Mumps and Cancer; Negative Autoimmune Disease, Down Syndrome, Developmental Delay, Falls, Blood Transfusions, Anesthesia Reactions, MRSA, VRSA, Vancomycin-Resistant Enterococci or Clostridium Difficile Family History FAMILY HISTORY: Positive Family Cancer (sister ovarian, skin); Negative Family Psychiatric Problems, Family Respiratory Disorders, Family Cardiac Disorders, Family Gastrointestinal Problems, Family Surgery or Family Anesthesia Reaction Surgical History SURGICAL: Positive Angiogram and Hysterectomy; Negative Endocrine Surgery or Joint Replacement Social History SMOKING STATUS: Smoking status: Never smoker SECOND HAND EXPOSURE: second hand exposure: No ALCOHOL: Alcohol Intake: Current ALCOHOL FREQUENCY: Alcohol Intake Frequency: A Few Times a Month HOUSING: Housing: House LIVES WITH: Lives With: Spouse Patient Dallas Garcia Social History Living Situation History Housing: House Tobacco History Smoking Status: Never smoker Second Hand Smoke Exposure: No Alcohol History Alcohol Intake: Current Alcohol Intake Frequency: A Few Times a Month Domestic Abuse History Do You Feel Safe at Home: Yes Review of Systems Report any current symptoms Only answer those that you have currently: Past Medical History Past Medical History Have you ever been diagnosed with any of the following: Cardiology Problems Hypercholesterolemia: Yes Congestive Heart Failure: No Respiratory Problems Chronic Obstructive Pulmonary Disease (COPD): No Asthma: No Genital/Urinary Problems Renal Disease: No Musculoskeletal Problems Arthritis: Yes Fractures: Yes Endocrine Problems Diabetes Mellitus Type 1: No Diabetes Mellitus Type 2: No Hypothyroidism: Yes (prev took meds. No longer taking) Blood Problems Anemia: Yes (d/t bleeding) Sickle Cell Disease: No Psychologic Problems Depression: Yes Anxiety: Yes Other Problems Autoimmune Disease: No Down Syndrome: No Developmental Delay: No Shingles: Yes Falls: No Blood Transfusions: No Anesthesia Reactions: No MRSA: No VRSA: No Vancomycin-Resistant Enterococci: No Chicken Pox: Yes Mumps: Yes Clostridium Difficile: No Cancer: Yes Surgical History Hysterectomy: Yes History of Present Illness HPI Narrative Ms. Ruff is a 64 year old female with past medical history significant for familial hyperlipidemia and single-vessel CAD angio was done in 2019, depression was hospitalized on 01/01/25 for incidental mass found on MRI causing patient diplopia, pstosis and mydriasis. 01/16/25: Pt is in [facility] for a follow up post hospitalization. Pt continues to have diplopia, pstosis has slight improvement. Pt saw Dr. Mart yesterday, all tests were within normal findins with the exception mildy elevated protein in CSF fluid. Pt's cocci is negative. Dr. Mart has ordered repeat MRI with and without contrast with higher resolution to be done in [place], Pt's case is also discussed with Dr. Ngo at [facility] for further evaluation and work up. Due to steroids, which is renewed for additional [address] Mart, Pt has noticed increased GERD and will order omeprazole to take on empty stomach. pt is provided work release document through March 10. will follow up after pt sees Dr. Mart on February 04 with MRI results. Review of Systems Review of Systems Systems Reviewed: All systems reviewed, normal except as documented Objective/Exam Narrative Physical exam: GENERAL: A&Ox3 . Awake, Not in acute distress NEURO: no other focal neurological deficits noted other than pstosis, mydriasis (pupils do react) on left eye HEENT: Atraumatic, Normocephalic. mucous membranes moist. HEART: Normal Heart Sounds LUNGS: Clear to auscultation with no wheezing or crackles. ABDOMEN: soft, non-distended, non-tender, bowel sounds heard, no guarding or rebound tenderness SKIN: No Rash or ecchymoses EXTREMITIES: No edema, tenderness, able to move all 4 extremities, pedal pulses palpated Assessment & Plan Diagnosis / Problem List (1) Cavernous sinus tumor: Status: Acute Assessment & Plan: Pt. continues to have ptosis, mydriasis and diplopia MRI is evident of cavernous sinus tumor Plan: -Continue steroids for addition 30 days -Started omeprazole for steroid induced GERD -Repeat MRI with and without contrast Office Procedures [facility] Level of Care Nursing/Assessment Patient Status: Established Patient Nursing Assessment/Reassessment: Medication Reconciliation, Update PMH in EMR and Vital Signs Coordination of Care: Complex Care and Chronic Disease 1-5, Consent,records obtained, informed consent, Education Simp Pt/Fam and Staff clarify orders Established Patient Charge Established Patient Point Assignment: 85 Established Patient Point Charge: EP Level 3 (80-115)
--- NOTE | 2025-01-16 14:33 | PD.RESCLINIC ---
Vital Signs 01/16/25 14:31 Height 1.63 m Height Method Stated Weight 85.786 kg Weight Measurement Method Standing Scale BMI 32.4 BP 122/71 Blood Pressure Source Automatic Cuff Blood Pressure Location Right Upper Arm Position Sitting Respiration 18 Pulse 57 L Pulse Source Monitor Temp 97.5 F Temp Source Temporal Artery Scan Pulse Oximetry (%) 95 Oxygen Delivery Method Room Air Allergies/Meds Allergies & Medications Allergies No Known Allergies Allergy (Verified 01/16/25 15:11) Medication Reconciliation aspirin 81 mg capsule 81 mg PO QDAY 01/01/25 [History Confirmed 01/16/25] atorvastatin 80 mg tablet 80 mg PO QDAY 01/01/25 [History Confirmed 01/16/25] bupropion HCl 150 mg tablet,12 hr sustained-release See Rx Instructions .Route .COMPLEX 01/01/25 [History Confirmed 01/16/25] evolocumab 140 mg/mL subcutaneous syringe (Repatha Syringe) 420 mg subcut .[id number] 01/01/25 [History Confirmed 01/16/25] ezetimibe 10 mg tablet (Zetia) 10 mg PO QDAY 01/01/25 [History Confirmed 01/16/25] famotidine 10 mg tablet 10 mg PO QDAY 01/01/25 [History Confirmed 01/16/25] fluoxetine 10 mg capsule 20 mg PO QDAY 01/01/25 [History Confirmed 01/16/25] fluoxetine 20 mg capsule 10 mg PO QDAY 01/01/25 [History Confirmed 01/16/25] gabapentin 600 mg tablet 900 mg PO HS 01/01/25 [History Confirmed 01/16/25] metoprolol succinate 25 mg tablet,extended release 24 hr 25 mg PO QDAY 01/01/25 [History Confirmed 01/16/25] MA Intake Visit Data Collection New Patient or Established: Established Patient (seen at [facility] within 3 years) Seen by Clinical Staff ONLY (RN/MA): No Pain Present Currently: No Pain scale:: 0 Pain Scale Used: [employer]/Numerical [employer] D[employer] Required: No PCP or OBGYN visit in last 3 months: No Hx Now: No Do You Feel Safe at Home: Yes Authorities Contacted: N/A Smoking Status Smoking Status: Never smoker Immunization / Flu Flu Vaccine in the Last 12 Months: No Flu Vaccine Exclusion Criteria: No Exclusion Criteria Past Medical History Past Medical History NEUROLOGIC: Negative Neurological Disorders CARDIAC: Positive Cardiac Disorders and Hypercholesterolemia; Negative Congestive Heart Failure RESPIRATORY: Negative Chronic Obstructive Pulmonary Disease (COPD) or Asthma GASTROINTESTINAL: Positive Gastrointestinal Disorders GENITOURINARY: Negative Genitourinary Disorders or Renal Disease MUSCULOSKELETAL: Positive Arthritis and Fractures ENDOCRINE: Positive Hypothyroidism (prev took meds. No longer taking); Negative Endocrine Disorders, Diabetes Mellitus Type 1 or Diabetes Mellitus Type 2 HEMATOLOGIC: Positive Anemia (d/t bleeding); Negative Blood Disorders or Sickle Cell Disease PSYCHO/SOCIAL: Positive Depression and Anxiety OTHER HISTORY: Positive Shingles, Chicken Pox, Mumps and Cancer; Negative Autoimmune Disease, Down Syndrome, Developmental Delay, Falls, Blood Transfusions, Anesthesia Reactions, MRSA, VRSA, Vancomycin-Resistant Enterococci or Clostridium Difficile Family History FAMILY HISTORY: Positive Family Cancer (sister ovarian, skin); Negative Family Psychiatric Problems, Family Respiratory Disorders, Family Cardiac Disorders, Family Gastrointestinal Problems, Family Surgery or Family Anesthesia Reaction Surgical History SURGICAL: Positive Angiogram and Hysterectomy; Negative Endocrine Surgery or Joint Replacement Social History SMOKING STATUS: Smoking status: Never smoker SECOND HAND EXPOSURE: second hand exposure: No ALCOHOL: Alcohol Intake: Current ALCOHOL FREQUENCY: Alcohol Intake Frequency: A Few Times a Month HOUSING: Housing: House LIVES WITH: Lives With: Spouse Patient Portal Jose Social History Living Situation History Housing: House Tobacco History Smoking Status: Never smoker Second Hand Smoke Exposure: No Alcohol History Alcohol Intake: Current Alcohol Intake Frequency: A Few Times a Month Domestic Abuse History Do You Feel Safe at Home: Yes Review of Systems Report any current symptoms Only answer those that you have currently: Past Medical History Past Medical History Have you ever been diagnosed with any of the following: Cardiology Problems Hypercholesterolemia: Yes Congestive Heart Failure: No Respiratory Problems Chronic Obstructive Pulmonary Disease (COPD): No Asthma: No Genital/Urinary Problems Renal Disease: No Musculoskeletal Problems Arthritis: Yes Fractures: Yes Endocrine Problems Diabetes Mellitus Type 1: No Diabetes Mellitus Type 2: No Hypothyroidism: Yes (prev took meds. No longer taking) Blood Problems Anemia: Yes (d/t bleeding) Sickle Cell Disease: No Psychologic Problems Depression: Yes Anxiety: Yes Other Problems Autoimmune Disease: No Down Syndrome: No Developmental Delay: No Shingles: Yes Falls: No Blood Transfusions: No Anesthesia Reactions: No MRSA: No VRSA: No Vancomycin-Resistant Enterococci: No Chicken Pox: Yes Mumps: Yes Clostridium Difficile: No Cancer: Yes Surgical History Hysterectomy: Yes Office Procedures [facility] Level of Care Nursing/Assessment Patient Status: Established Patient Nursing Assessment/Reassessment: Medication Reconciliation, Update PMH in EMR and Vital Signs Coordination of Care: Complex Care and Chronic Disease 1-5, Consent,records obtained, informed consent, Education Simp Pt/Fam and Staff clarify orders Established Patient Charge Established Patient Point Assignment: 85 Established Patient Point Charge: Level 3 (80-115)
== END 2025-01-16 15:33 | disposition home or self-care (01) ==
LOC: HODAHC 13:44
PROVIDERS: Supervising Provider Internal Medicine
DX: H53.2 Diplopia (principal); H02.402 Unspecified ptosis of left eyelid; H57.04 Mydriasis; K21.9 Gastro-esophageal reflux disease without esophagitis
CPT/HCPCS: 99213; G0463

== ENCOUNTER 2025-01-30 14:28 | Outpatient (AMB) | payer BC, SELFPAY ==
[2025-01-30 14:57] VITALS: BP 135/81; PULSE 67; RESP 14; TEMP 36.6; O2SAT 96; BMI 31.7
--- NOTE | 2025-01-30 14:57 | ACNOTE_ITS ---
Vital Signs 3 01/30/25 14:57 Height 1.63 m Height Method Stated Weight 84.368 kg Weight Measurement Method Standing Scale BMI 31.7 BP 135/81 H Blood Pressure Source Automatic Cuff Blood Pressure Location Right Upper Arm Position Sitting Respiration 14 Pulse 67 Pulse Source Monitor Temp 97.8 F Temp Source Oral Pulse Oximetry (%) 96 Oxygen Delivery Method Room Air Allergies/Meds Allergies & Medications Allergies No Known Allergies Allergy (Verified 01/30/25 15:00) Medication Reconciliation aspirin 81 mg capsule 81 mg PO QDAY 01/01/25 [History Confirmed 01/30/25] atorvastatin 80 mg tablet 80 mg PO QDAY 01/01/25 [History Confirmed 01/30/25] bupropion HCl 150 mg tablet,12 hr sustained-release See Rx Instructions .Route .COMPLEX 01/01/25 [History Confirmed 01/30/25] evolocumab 140 mg/mL subcutaneous syringe (Repatha Syringe) 420 mg subcut .[id number] 01/01/25 [History Confirmed 01/30/25] ezetimibe 10 mg tablet (Zetia) 10 mg PO QDAY 01/01/25 [History Confirmed 01/30/25] famotidine 10 mg tablet 10 mg PO QDAY 01/01/25 [History Confirmed 01/30/25] fluoxetine 10 mg capsule 20 mg PO QDAY 01/01/25 [History Confirmed 01/30/25] fluoxetine 20 mg capsule 10 mg PO QDAY 01/01/25 [History Confirmed 01/30/25] gabapentin 600 mg tablet 900 mg PO HS 01/01/25 [History Confirmed 01/30/25] metoprolol succinate 25 mg tablet,extended release 24 hr 25 mg PO QDAY 01/01/25 [History Confirmed 01/30/25] omeprazole 20 mg capsule,delayed release 20 mg PO QDAY #30 caps 01/16/25 [Rx Confirmed 01/30/25] MA Intake Visit Data Collection PCP or OBGYN visit in last 3 months: Yes Smoking Status Smoking Status: Never smoker Immunization / Flu Flu Vaccine in the Last 12 Months: No Flu Vaccine Exclusion Criteria: Refused by Patient Past Medical History Past Medical History NEUROLOGIC: Negative Neurological Disorders CARDIAC: Positive Cardiac Disorders and Hypercholesterolemia; Negative Congestive Heart Failure RESPIRATORY: Negative Chronic Obstructive Pulmonary Disease (COPD) or Asthma GASTROINTESTINAL: Positive Gastrointestinal Disorders GENITOURINARY: Negative Genitourinary Disorders or Renal Disease MUSCULOSKELETAL: Positive Arthritis and Fractures ENDOCRINE: Positive Hypothyroidism (prev took meds. No longer taking); Negative Endocrine Disorders, Diabetes Mellitus Type 1 or Diabetes Mellitus Type 2 HEMATOLOGIC: Positive Anemia (d/t bleeding); Negative Blood Disorders or Sickle Cell Disease PSYCHO/SOCIAL: Positive Depression and Anxiety OTHER HISTORY: Positive Shingles, Chicken Pox, Mumps and Cancer; Negative Autoimmune Disease, Down Syndrome, Developmental Delay, Falls, Blood Transfusions, Anesthesia Reactions, MRSA, VRSA, Vancomycin-Resistant Enterococci or Clostridium Difficile Family History FAMILY HISTORY: Positive Family Cancer (sister ovarian, skin); Negative Family Psychiatric Problems, Family Respiratory Disorders, Family Cardiac Disorders, Family Gastrointestinal Problems, Family Surgery or Family Anesthesia Reaction Surgical History SURGICAL: Positive Angiogram and Hysterectomy; Negative Endocrine Surgery or Joint Replacement Social History SMOKING STATUS: Smoking status: Never smoker SECOND HAND EXPOSURE: second hand exposure: No ALCOHOL: Alcohol Intake: Current ALCOHOL FREQUENCY: Alcohol Intake Frequency: A Few Times a Month HOUSING: Housing: House LIVES WITH: Lives With: Spouse Patient Portal Questionaires Social History Living Situation History Housing: House Tobacco History Smoking Status: Never smoker Second Hand Smoke Exposure: No Alcohol History Alcohol Intake: Current Alcohol Intake Frequency: A Few Times a Month Review of Systems Report any current symptoms Only answer those that you have currently: Past Medical History Past Medical History Have you ever been diagnosed with any of the following: Cardiology Problems Hypercholesterolemia: Yes Congestive Heart Failure: No Respiratory Problems Chronic Obstructive Pulmonary Disease (COPD): No Asthma: No Genital/Urinary Problems Renal Disease: No Musculoskeletal Problems Arthritis: Yes Fractures: Yes Endocrine Problems Diabetes Mellitus Type 1: No Diabetes Mellitus Type 2: No Hypothyroidism: Yes (prev took meds. No longer taking) Blood Problems Anemia: Yes (d/t bleeding) Sickle Cell Disease: No Psychologic Problems Depression: Yes Anxiety: Yes Other Problems Autoimmune Disease: No Down Syndrome: No Developmental Delay: No Shingles: Yes Falls: No Blood Transfusions: No Anesthesia Reactions: No MRSA: No VRSA: No Vancomycin-Resistant Enterococci: No Chicken Pox: Yes Mumps: Yes Clostridium Difficile: No Cancer: Yes Surgical History Hysterectomy: Yes History of Present Illness HPI Narrative Ms. Ruff is a 64 year old female with past medical history significant for familial hyperlipidemia and single-vessel CAD angio was done in 2019, depression was hospitalized on 01/01/25 for incidental mass found on MRI causing patient diplopia, pstosis and mydriasis. 05/08/25: Pt is in located within [facility] for a follow up post hospitalization. Pt continues to have diplopia, pstosis has slight improvement. Pt saw Dr. Mart yesterday, all tests were within normal findins with the exception mildy elevated protein in CSF fluid. Pt's cocci is negative. Dr. Mart has ordered repeat MRI with and without contrast with higher resolution to be done in [place], Pt's case is also discussed with Dr. Ngo at [facility] for further evaluation and work up. Due to steroids, which is renewed for additional [address] Mart, Pt has noticed increased GERD and will order omeprazole to take on empty stomach. pt is provided work release document through March 10. will follow up after pt sees Dr. Mart on February 04 with MRI results. 01/30/25: Patient was seen and examined at clinic. She reports her symptoms improved dramatically and now she can fully open left eye, her pupil is still slightly more dilated then right and she has a eyelid lag when opens eyes and delay in eye adduction, but she does not have double vision all the time as before. She continue dexamethazone 4 mg BID as per Dr. Mart. She is scheduled for MRI in February and follow up with neurology. Review of Systems Review of Systems Systems Reviewed: All systems reviewed, normal except as documented Objective/Exam Objective Laboratory: Gen: Well-developed and well-nourished female. HEENT: NCAT, MMM, anicteric conjunctivae. Left pupil is slightly dilated but reactive when light is shined to both eyes, adduction and eyelid opening are delayed, otherwise unremarkable. CVS: normal S1 and S2. RRR. No M/R/G. Resp: CTA B/L. No rhonchi, rales, crackles or wheezing. Abd: soft, non-tender, non-distended. BS+ in all 4 quadrants. MSK: Good ROM in BUE & BLE. No edema or rash. Neuro: CN II-XII grossly intact. Strength 5/5 in BUE & BLE. Alert and oriented x3. Psych: appropriate mood and affect. Imaging: Assessment & Plan Diagnosis / Problem List (1) Cavernous sinus tumor: Status: Acute Assessment & Plan: Pt. continues to have ptosis, mydriasis and diplopia but improved dramatically. She can open her left eye completely, however there is still eyelid lag and eye adduction delay. Her left pupil is slightly more dilated but reacts to light. She reports double vision has improved and she now has episodes without double vision. MRI is evident of cavernous sinus tumor. Plan: -Continue dexamethazone 4 mg BID as per neuro recs. -Continue omeprazole for steroid induced GERD. -Repeat MRI with and without contrast in February and follow up with neurology. Additional Assessment Internal Medicine Attending Note: Patient examined and interviewed. Case discussed with and agree with note and management plan of Resident Physician as per Resident's Note above. Issues of concern for present visit are as follows: Follow-up visit. Since last visit, has noted further improvement in diplopia. Still noting slight ptosis. She is able to nearly open left eye. Left pupil is still slightly more dilated than right. 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 Remains on dexamethasone 4 mg twice daily. Repeat MRI scheduled in February. Overall improvement noted by patient. She will also be following up with neurology. Konstantin Mitchell MD Additional Plan Plan of care discussed with attending Dr. Mitchell. Jewel Trejo MD, PGY 2. Disclaimer: This note was dictated by speech recognition. Minor errors in narrow fabrics weaver may be present due to voice recognition software. Physician Billing Established Patient Established Patient: E/M Level 3-CPT 68553
== END 2025-01-30 15:00 | disposition home or self-care (01) ==
PROVIDERS: Supervising Provider Student in an Organized Health Care Education/Training Program; Visit Provider Student in an Organized Health Care Education/Training Program
DX: H02.403 Unspecified ptosis of bilateral eyelids (principal); H57.04 Mydriasis; H53.2 Diplopia; K21.9 Gastro-esophageal reflux disease without esophagitis
CPT/HCPCS: 99213; G0463

== ENCOUNTER 2025-02-27 15:51 | Outpatient (AMB) | payer BC, SELFPAY ==
[2025-02-27 15:20] VITALS: BP 109/73; PULSE 71; RESP 17; TEMP 36.1; O2SAT 95; BMI 30.7
--- NOTE | 2025-02-27 15:20 | ACNOTE_ITS ---
Vital Signs 02/27/25 15:20 Height 1.63 m Height Method Measured Weight 81.647 kg Weight Measurement Method Standing Scale BMI 30.7 BP 109/73 Blood Pressure Source Automatic Cuff Blood Pressure Location Right Upper Arm Position Sitting Respiration 17 Pulse 71 Pulse Source Monitor Temp 97.0 F Temp Source Temporal Artery Scan Pulse Oximetry (%) 95 Oxygen Delivery Method Room Air Allergies/Meds Allergies & Medications Allergies No Known Allergies Allergy (Verified 02/27/25 15:21) Medication Reconciliation aspirin 81 mg capsule 81 mg PO QDAY 01/01/25 [History Confirmed 02/27/25] atorvastatin 80 mg tablet 80 mg PO QDAY 01/01/25 [History Confirmed 02/27/25] bupropion HCl 150 mg tablet,12 hr sustained-release See Rx Instructions .Route .COMPLEX 01/01/25 [History Confirmed 02/27/25] evolocumab 140 mg/mL subcutaneous syringe (Repatha Syringe) 420 mg subcut .[id number] 01/01/25 [History Confirmed 02/27/25] ezetimibe 10 mg tablet (Zetia) 10 mg PO QDAY 01/01/25 [History Confirmed 02/27/25] famotidine 10 mg tablet 10 mg PO QDAY 01/01/25 [History Confirmed 02/27/25] fluoxetine 10 mg capsule 20 mg PO QDAY 01/01/25 [History Confirmed 02/27/25] fluoxetine 20 mg capsule 10 mg PO QDAY 01/01/25 [History Confirmed 02/27/25] gabapentin 600 mg tablet 900 mg PO HS 01/01/25 [History Confirmed 02/27/25] metoprolol succinate 25 mg tablet,extended release 24 hr 25 mg PO QDAY 01/01/25 [History Confirmed 02/27/25] omeprazole 20 mg capsule,delayed release 20 mg PO QDAY #30 caps 01/16/25 [Rx Confirmed 02/27/25] MA Intake Visit Data Collection New Patient or Established: Established Patient (seen at [facility] within 3 years) Seen by Clinical Staff ONLY (RN/MIKAEL): No Reason for Visit:: MRI RESULTS Pain Present Currently: Yes Pain Location: Mouth Pain scale:: 4 Pain Scale Used: Barr-Babin/Numerical Acupuncture Physician Required: No PCP or OBGYN visit in last 3 months: Yes Date of Last PCP or OBGYN visit: 01/30/25 Hx Now: No Do You Feel Safe at Home: Yes Authorities Contacted: N/A Smoking Status Smoking Status: Never smoker Immunization / Flu Flu Vaccine in the Last 12 Months: Yes Flu Vaccine Exclusion Criteria: No Exclusion Criteria Past Medical History Past Medical History NEUROLOGIC: Negative Neurological Disorders CARDIAC: Positive Cardiac Disorders and Hypercholesterolemia; Negative Congestive Heart Failure RESPIRATORY: Negative Chronic Obstructive Pulmonary Disease (COPD) or Asthma GASTROINTESTINAL: Positive Gastrointestinal Disorders GENITOURINARY: Negative Genitourinary Disorders or Renal Disease MUSCULOSKELETAL: Positive Arthritis and Fractures ENDOCRINE: Positive Hypothyroidism (prev took meds. No longer taking); Negative Endocrine Disorders, Diabetes Mellitus Type 1 or Diabetes Mellitus Type 2 HEMATOLOGIC: Positive Anemia (d/t bleeding); Negative Blood Disorders or Sickle Cell Disease PSYCHO/SOCIAL: Positive Depression and Anxiety OTHER HISTORY: Positive Shingles, Chicken Pox, Mumps and Cancer; Negative Autoimmune Disease, Down Syndrome, Developmental Delay, Falls, Blood Transfusions, Anesthesia Reactions, MRSA, VRSA, Vancomycin-Resistant Enterococci or Clostridium Difficile Family History FAMILY HISTORY: Positive Family Cancer (sister ovarian, skin); Negative Family Psychiatric Problems, Family Respiratory Disorders, Family Cardiac Disorders, Family Gastrointestinal Problems, Family Surgery or Family Anesthesia Reaction Surgical History SURGICAL: Positive Angiogram and Hysterectomy; Negative Endocrine Surgery or Joint Replacement Social History SMOKING STATUS: Smoking status: Never smoker SECOND HAND EXPOSURE: second hand exposure: No ALCOHOL: Alcohol Intake: Current ALCOHOL FREQUENCY: Alcohol Intake Frequency: A Few Times a Month HOUSING: Housing: House LIVES WITH: Lives With: Spouse Patient Portal Questionaires PHQ-9 PHQ-2 Over the last 2 weeks, how often have you been bothered by any of the following problems? 1. Little interest or pleasure in doing things: not at all 2. Feeling down, depressed, or hopeless: not at all Total score: 0 PHQ-9 3. Trouble falling or staying asleep, or sleeping too much: Not at all 4. Feeling tired or having little energy: Not at all 5. Poor appetite or overeating: Not at all 6. Feeling bad about yourself - or that you are a failure or have let yourself or your family down: Not at all 7. Trouble concentrating on things, such as reading the newspaper or watching television: Not at all 8. Moving or speaking so slowly that other people could have noticed? - Or the opposite - being so fidgety or restless that you have been moving around a lot more than usual: not at all 9. Thoughts that you would be better off or of hurting yourself in some way: Not at all Total score: 0 Source: Developed by Drs. Lc Bernard, Emerald Pires, Harman Collins and colleagues, with an educational francisco from [employer]. Depression screen completed yes Social History Living Situation History Marital Status: Unknown Housing: House Tobacco History Smoking Status: Never smoker Second Hand Smoke Exposure: No Alcohol History Alcohol Intake: Current Alcohol Intake Frequency: A Few Times a Month Domestic Abuse History Do You Feel Safe at Home: Yes Review of Systems Report any current symptoms Only answer those that you have currently: Past Medical History Past Medical History Have you ever been diagnosed with any of the following: Cardiology Problems Hypercholesterolemia: Yes Congestive Heart Failure: No Respiratory Problems Chronic Obstructive Pulmonary Disease (COPD): No Asthma: No Genital/Urinary Problems Renal Disease: No Musculoskeletal Problems Arthritis: Yes Fractures: Yes Endocrine Problems Diabetes Mellitus Type 1: No Diabetes Mellitus Type 2: No Hypothyroidism: Yes (prev took meds. No longer taking) Blood Problems Anemia: Yes (d/t bleeding) Sickle Cell Disease: No Psychologic Problems Depression: Yes Anxiety: Yes Other Problems Autoimmune Disease: No Down Syndrome: No Developmental Delay: No Shingles: Yes Falls: No Blood Transfusions: No Anesthesia Reactions: No MRSA: No VRSA: No Vancomycin-Resistant Enterococci: No Chicken Pox: Yes Mumps: Yes Clostridium Difficile: No Cancer: Yes Surgical History Hysterectomy: Yes History of Present Illness HPI Narrative Ms. Ruff is a 64 year old female with past medical history significant for familial hyperlipidemia and single-vessel CAD angio was done in 2019, depression was hospitalized on 01/01/25 for incidental mass found on MRI causing patient diplopia, pstosis and mydriasis. 01/16/25: Pt is in [facility] for a follow up post hospitalization. Pt continues to have diplopia, pstosis has slight improvement. Pt saw Dr. Mart yesterday, all tests were within normal findins with the exception mildy elevated protein in CSF fluid. Pt's cocci is negative. Dr. Mart has ordered repeat MRI with and without contrast with higher resolution to be done in [place], Pt's case is also discussed with Dr. Ngo at [facility] for further evaluation and work up. Due to steroids, which is renewed for additional [address] Mart, Pt has noticed increased GERD and will order omeprazole to take on empty stomach. pt is provided work release document through March 10. will follow up after pt sees Dr. Mart on February 04 with MRI results. 01/30/25: Patient was seen and examined at clinic. She reports her symptoms improved dramatically and now she can fully open left eye, her pupil is still slightly more dilated then right and she has a eyelid lag when opens eyes and delay in eye adduction, but she does not have double vision all the time as before. She continue dexamethazone 4 mg BID as per Dr. Mart. She is scheduled for MRI in February and follow up with neurology. 02/27/25: Patient was seen and examined at clinic. She was evaluated today by neurology Dr. Mart. She reports she recently recovered from URI and also developed mouth ulcers, therefore Dr. Mart reduced dose of dexamethazone to 2 mg BID. She also underwent high resolution MRI showing 14 mm multilobulated mildly enhancing lesion as compared to MRI from 01/01/25 lesion was [id number]; MRI was also seen by Dr. Mart and she referred patient to neurosurgeon in [facility] Dr. Palma for evaluation. Patient reports her symptoms are stable and unchanged from prior visit, she still has occasional diplopia and has constant blurry vision at night. Her left pupil is reactive but is still slightly dilated in comparison to the right eye and there is a lag in adduction, unchanged from prior visit. She will follow up with Dr. Mart and [facility] after her appointment with neurosurgeon. Review of Systems Review of Systems Systems Reviewed: All systems reviewed, normal except as documented Objective/Exam Objective Laboratory: Gen: Well-developed and well-nourished female. HEENT: NCAT, MMM, anicteric conjunctivae. Left pupil is slightly dilated but reactive when light is shined to both eyes, adduction and eyelid opening are delayed, otherwise unremarkable. CVS: normal S1 and S2. RRR. No M/R/G. Resp: CTA B/L. No rhonchi, rales, crackles or wheezing. Abd: soft, non-tender, non-distended. BS+ in all 4 quadrants. MSK: Good ROM in BUE & BLE. No edema or rash. Neuro: CN II-XII grossly intact. Strength 5/5 in BUE & BLE. Alert and oriented x3. Psych: appropriate mood and affect. Assessment & Plan Diagnosis / Problem List (1) Cavernous sinus tumor: Status: Acute Assessment & Plan: Pt. continues to have ptosis, mydriasis and diplopia which are stable since last visit. She can open her left eye completely, however there is still eyelid lag and eye adduction delay. Her left pupil is slightly more dilated but reacts to light. She reports double vision has improved but still present occasionally, blurry vision at night is still present. High resolution MRI showed 14 mm multilobulated mildly enhancing lesion as compared to MRI from 01/01/25 lesion was [id number]. Referred to neurosurgery evaluation by Dr. Mart. Plan: -Continue dexamethazone 2 mg BID as per neuro recs. -Follow up with neurosurgeon Dr. Palma in [facility]. -Follow up with neurology and [facility] after neurosurgery evaluation. Additional Assessment Internal Medicine Attending Note: Patient examined and interviewed. Case discussed with and agree with note and management plan of Resident Physician as per Resident's Note above. Issues of concern for present visit are as follows: Follow-up visit. Noting perhaps slight improvement. Still notices some dizziness when having to move eyes rapidly (when she changes her focus quickly). Notes some occasional diplopia. Notes blurry vision at night when more fatigued. On examination, left pupil is reactive but still slightly dilated compared to the right eye. Lag in adduction is noted. Was seen by neurology. Cavernous sinus mass noted to be 10 x 18 mm. She has been referred by neurology to a neurosurgeon at [facility], Dr. Palma. Current dose of steroid is dexamethasone 2 mg twice daily. Continue this for now. Disability forms brought in. 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 Given her vision difficulties and dizziness, she is not able to do this job at this time. Konstantin Mitchell MD Additional Plan Plan of care discussed with attending Dr. Mitchell. Jewel Trejo MD, PGY 2. Disclaimer: This note was dictated by speech recognition. Minor errors in bowling pin refinisher may be present due to voice recognition software. Physician Billing Established Patient Established Patient: E/M Level 4-CPT 45210 Office Procedures [facility] Level of Care Nursing/Assessment Patient Status: Established Patient Nursing Assessment/Reassessment: Medication Reconciliation, Update PMH in EMR and Vital Signs Coordination of Care: Complex Care and Chronic Disease 1-5, Consent,records obtained, informed consent, Education Simp Pt/Fam and Staff clarify orders Established Patient Charge Established Patient Point Assignment: 85 Established Patient Point Charge: Level 3 (80-115) TB Screening LTBI Screening: Has patient traveled, was born, or resided for at least 1 month, or frequent border crossing into a country with an elevated TB rate: No Immunosuppression, current or planned (HIV, organ transplant, treated with biologic agents, steroids, or other immunosuppression medication): No Close contact to someone with infectious TB disease during lifetime: No Homelessness or incarceration, current or past: No TB testing indicated at this time (at least 1 yes above): No
== END 2025-02-27 15:56 | disposition home or self-care (01) ==
LOC: HODAHC 15:51
PROVIDERS: Supervising Provider Internal Medicine
DX: D49.6 Neoplasm of unspecified behavior of brain (principal)
CPT/HCPCS: 99213; G0463

== ENCOUNTER 2025-03-31 10:52 | Outpatient (AMB) | payer BC, SELFPAY ==
[2025-03-31 11:13] VITALS: BP 111/73; PULSE 76; RESP 18; TEMP 36.8; O2SAT 91; BMI 30.7
--- NOTE | 2025-03-31 11:13 | PD.RESCLINIC ---
Vital Signs 03/31/25 11:13 Height 1.63 m Height Method Stated Weight 81.76 kg Weight Measurement Method Standing Scale BMI 30.7 BP 111/73 Blood Pressure Source Automatic Cuff Blood Pressure Location Right Upper Arm Position Sitting Respiration 18 Pulse 76 Pulse Source Monitor Temp 98.3 F Temp Source Temporal Artery Scan Pulse Oximetry (%) 91 L Oxygen Delivery Method Room Air Allergies/Meds Allergies & Medications Allergies No Known Allergies Allergy (Verified 03/31/25 11:14) Medication Reconciliation aspirin 81 mg capsule 81 mg PO QDAY 01/01/25 [History Confirmed 03/31/25] atorvastatin 80 mg tablet 80 mg PO QDAY 01/01/25 [History Confirmed 03/31/25] bupropion HCl 150 mg tablet,12 hr sustained-release See Rx Instructions .Route .COMPLEX 01/01/25 [History Confirmed 03/31/25] evolocumab 140 mg/mL subcutaneous syringe (Repatha Syringe) 420 mg subcut .[id number] 01/01/25 [History Confirmed 03/31/25] ezetimibe 10 mg tablet (Zetia) 10 mg PO QDAY 01/01/25 [History Confirmed 03/31/25] famotidine 10 mg tablet 10 mg PO QDAY 01/01/25 [History Confirmed 03/31/25] fluoxetine 10 mg capsule 20 mg PO QDAY 01/01/25 [History Confirmed 03/31/25] fluoxetine 20 mg capsule 10 mg PO QDAY 01/01/25 [History Confirmed 03/31/25] gabapentin 600 mg tablet 900 mg PO HS 01/01/25 [History Confirmed 03/31/25] metoprolol succinate 25 mg tablet,extended release 24 hr 25 mg PO QDAY 01/01/25 [History Confirmed 03/31/25] omeprazole 20 mg capsule,delayed release 20 mg PO QDAY #30 caps 01/16/25 [Rx Confirmed 03/31/25] lidocaine HCl 2 % mucosal solution 1 applic mucous membrane QDAY PRN pain #100 mL 03/31/25 [Rx] blood-glucose meter (Advanced All-in-One Glucose Meter kit) #1 ea 04/28/25 [Rx] furosemide 20 mg tablet (Lasix) 20 mg PO QAM #30 tabs 04/28/25 [Rx] metformin 500 mg tablet 500 mg PO BID 30 days #60 tabs 04/28/25 [Rx] blood sugar diagnostic (Accu-Chek Guide test strips) #100 ea 05/01/25 [Rx] blood-glucose meter (Accu-Chek Guide Glucose Meter) #1 ea 05/01/25 [Rx] lancets 31 gauge (Comfort Touch Ultra Thin Lancets) #100 ea 05/01/25 [Rx] semaglutide 3 mg tablet (Rybelsus) 3 mg PO QDAY 30 days #30 tabs 05/01/25 [Rx] ondansetron HCl 4 mg tablet 4 mg PO Q8H PRN nausea and vomiting #30 tabs 05/16/25 [Rx] MA Intake Visit Data Collection New Patient or Established: Established Patient (seen at [facility] within 3 years) Seen by Clinical Staff ONLY (RN/MA): No Pain Present Currently: No Pain scale:: 0 Pain Scale Used: Barr-Babin/Numerical Bloom Conveyor Operator Required: No PCP or OBGYN visit in last 3 months: No Hx Now: No Do You Feel Safe at Home: Yes Authorities Contacted: N/A Smoking Status Smoking Status: Never smoker Immunization / Flu Flu Vaccine in the Last 12 Months: No Flu Vaccine Exclusion Criteria: No Exclusion Criteria Past Medical History Past Medical History NEUROLOGIC: Negative Neurological Disorders CARDIAC: Positive Cardiac Disorders and Hypercholesterolemia; Negative Congestive Heart Failure RESPIRATORY: Negative Chronic Obstructive Pulmonary Disease (COPD) or Asthma GASTROINTESTINAL: Positive Gastrointestinal Disorders GENITOURINARY: Negative Genitourinary Disorders or Renal Disease MUSCULOSKELETAL: Positive Arthritis and Fractures ENDOCRINE: Positive Hypothyroidism (prev took meds. No longer taking); Negative Endocrine Disorders, Diabetes Mellitus Type 1 or Diabetes Mellitus Type 2 HEMATOLOGIC: Positive Anemia (d/t bleeding); Negative Blood Disorders or Sickle Cell Disease PSYCHO/SOCIAL: Positive Depression and Anxiety OTHER HISTORY: Positive Shingles, Chicken Pox, Mumps and Cancer; Negative Autoimmune Disease, Down Syndrome, Developmental Delay, Falls, Blood Transfusions, Anesthesia Reactions, MRSA, VRSA, Vancomycin-Resistant Enterococci or Clostridium Difficile Family History FAMILY HISTORY: Positive Family Cancer (sister ovarian, skin); Negative Family Psychiatric Problems, Family Respiratory Disorders, Family Cardiac Disorders, Family Gastrointestinal Problems, Family Surgery or Family Anesthesia Reaction Surgical History SURGICAL: Positive Angiogram and Hysterectomy; Negative Endocrine Surgery or Joint Replacement Social History SMOKING STATUS: Smoking status: Never smoker SECOND HAND EXPOSURE: second hand exposure: No ALCOHOL: Alcohol Intake: Current ALCOHOL FREQUENCY: Alcohol Intake Frequency: A Few Times a Month HOUSING: Housing: House LIVES WITH: Lives With: Spouse Patient Portal Questionaires PHQ-9 PHQ-2 Over the last 2 weeks, how often have you been bothered by any of the following problems? 1. Little interest or pleasure in doing things: not at all PHQ-9 8. Moving or speaking so slowly that other people could have noticed? - Or the opposite - being so fidgety or restless that you have been moving around a lot more than usual: not at all Source: Developed by Drs. Lc Bernard, Emerald Pires, Harman Collins and colleagues, with an educational francisco from [employer]. Social History Living Situation History Housing: House Tobacco History Smoking Status: Never smoker Second Hand Smoke Exposure: No Alcohol History Alcohol Intake: Current Alcohol Intake Frequency: A Few Times a Month Domestic Abuse History Do You Feel Safe at Home: Yes Review of Systems Report any current symptoms Only answer those that you have currently: Past Medical History Past Medical History Have you ever been diagnosed with any of the following: Cardiology Problems Hypercholesterolemia: Yes Congestive Heart Failure: No Respiratory Problems Chronic Obstructive Pulmonary Disease (COPD): No Asthma: No Genital/Urinary Problems Renal Disease: No Musculoskeletal Problems Arthritis: Yes Fractures: Yes Endocrine Problems Diabetes Mellitus Type 1: No Diabetes Mellitus Type 2: No Hypothyroidism: Yes (prev took meds. No longer taking) Blood Problems Anemia: Yes (d/t bleeding) Sickle Cell Disease: No Psychologic Problems Depression: Yes Anxiety: Yes Other Problems Autoimmune Disease: No Down Syndrome: No Developmental Delay: No Shingles: Yes Falls: No Blood Transfusions: No Anesthesia Reactions: No MRSA: No VRSA: No Vancomycin-Resistant Enterococci: No Chicken Pox: Yes Mumps: Yes Clostridium Difficile: No Cancer: Yes Surgical History Hysterectomy: Yes History of Present Illness HPI Narrative Ms. Ruff is a 64 year old female with past medical history significant for familial hyperlipidemia and single-vessel CAD angio was done in 2019, depression was hospitalized on 01/01/25 for incidental mass found on MRI causing patient diplopia, pstosis and mydriasis. 01/16/25: Pt is in located within [facility] for a follow up post hospitalization. Pt continues to have diplopia, pstosis has slight improvement. Pt saw Dr. Mart yesterday, all tests were within normal findins with the exception mildy elevated protein in CSF fluid. Pt's cocci is negative. Dr. Mart has ordered repeat MRI with and without contrast with higher resolution to be done in [place], Pt's case is also discussed with Dr. Ngo at [facility] for further evaluation and work up. Due to steroids, which is renewed for additional [address] Mart, Pt has noticed increased GERD and will order omeprazole to take on empty stomach. pt is provided work release document through March 10. will follow up after pt sees Dr. Mart on February 04 with MRI results. 01/30/25: Patient was seen and examined at clinic. She reports her symptoms improved dramatically and now she can fully open left eye, her pupil is still slightly more dilated then right and she has a eyelid lag when opens eyes and delay in eye adduction, but she does not have double vision all the time as before. She continue dexamethazone 4 mg BID as per Dr. Mart. She is scheduled for MRI in February and follow up with neurology. 02/27/25: Patient was seen and examined at clinic. She was evaluated today by neurology Dr. Mart. She reports she recently recovered from URI and also developed mouth ulcers, therefore Dr. Mart reduced dose of dexamethazone to 2 mg BID. She also underwent high resolution MRI showing 14 mm multilobulated mildly enhancing lesion as compared to MRI from 01/01/25 lesion was [id number]; MRI was also seen by Dr. Mart and she referred patient to neurosurgeon in [facility] Dr. Palma for evaluation. Patient reports her symptoms are stable and unchanged from prior visit, she still has occasional diplopia and has constant blurry vision at night. Her left pupil is reactive but is still slightly dilated in comparison to the right eye and there is a lag in adduction, unchanged from prior visit. She will follow up with Dr. Mart and [facility] after her appointment with neurosurgeon. 03/31/25- Pt is in office for follow up appointment. Pt is still waiting for insurance approval to get CT W/WO contrast of the orbit and then will follow up with neurosurgeon in [place]. Pt does endorse to improvement in the ptosis and mydriasis. Pt is continuing steroids, however feels like she has been having a lot of side affects including weight gain, and mood changes. pt also has an appointment with Dr. Avery later today. Pt LE edema has improved since starting lasix. Review of Systems Review of Systems Systems Reviewed: All systems reviewed, normal except as documented Objective/Exam Narrative Physical exam: GENERAL: A&Ox3 . Awake, Not in acute distress NEURO: no focal neurological deficits HEENT: Atraumatic, Normocephalic. mucous membranes moist. Eyes open, ptosis has improved significantly and pupil is dialted however reactive to light. HEART: Normal Heart Sounds LUNGS: Clear to auscultation with no wheezing or crackles. ABDOMEN: soft, non-distended, non-tender, bowel sounds heard, no guarding or rebound tenderness SKIN: No Rash or ecchymoses EXTREMITIES: No edema, tenderness, able to move all 4 extremities, pedal pulses palpated Assessment & Plan Diagnosis / Problem List (1) Cavernous sinus tumor: Status: Acute Assessment & Plan: Patient reports stable symptoms with occasional diplopia episodes. Plan: -Continue dexamethazone 2 mg daily, will reattempt taper with lower daily dose before discontinuing. -PEnding CT of orbits with and without contrast. -Follow up with neurology Dr Mart after imaging. -Pending Neurosurgeon referral after CT is done (2) Hyperglycemia, drug-induced: Status: Acute Assessment & Plan: -Labs showed HgbA1C 10.9%, glucose 295. Patient does not want to start diabetic medications and wants to follow up on her glucose level after she finishes steroids. Plan: -fasting glucose ordered for April 25. -follow up with [facility] on April 28. Additional Assessment Attending note: I, Konstantin Mitchell MD, attest that I was physically present for the mccoy portions of the service and evaluated the patient with the resident and I reviewed and discussed the case with the resident and agree with the resident's findings and plans of care as documented above. Konstantin Mitchell MD Physician Billing Established Patient Established Patient: E/M Level 3-CPT 24992 Office Procedures [facility] Level of Care Nursing/Assessment Patient Status: Established Patient Nursing Assessment/Reassessment: Medication Reconciliation, Update PMH in EMR and Vital Signs Coordination of Care: Complex Care and Chronic Disease 1-5, Consent,records obtained, informed consent, Education Simp Pt/Fam and Staff clarify orders Established Patient Charge Established Patient Point Assignment: 85 Established Patient Point Charge: EP Level 3 (80-115)
== END 2025-03-31 12:04 | disposition home or self-care (01) ==
LOC: HODAHC 10:52
PROVIDERS: Supervising Provider Internal Medicine
DX: D49.6 Neoplasm of unspecified behavior of brain (principal); R73.9 Hyperglycemia, unspecified
CPT/HCPCS: 99213; G0463

== ENCOUNTER 2025-04-14 10:07 | Outpatient (AMB) | payer BC, SELFPAY ==
--- NOTE | 2025-04-14 10:08 | ACNOTE_ITS ---
Allergies/Meds Allergies & Medications Allergies No Known Allergies Allergy (Verified 03/31/25 11:14) MA Intake Visit Data Collection New Patient or Established: Established Patient (seen at [facility] within 3 years) Seen by Clinical Staff ONLY (RN/MA): No Reason for Visit:: ABNORMAL LABS Pain Present Currently: No Corporate Health Consultant Required: No PCP or OBGYN visit in last 3 months: Yes Date of Last PCP or OBGYN visit: 03/31/25 Hx Now: No Do You Feel Safe at Home: Yes Authorities Contacted: N/A Smoking Status Smoking Status: Never smoker For Televisit only Telemed Video/Phone Visit: Yes Verbal consent obtained for Telemed visit?: Yes Verbal Consent witness name: ANDRES ALFONSO/TREVON ADAMS Telemed Video/Phone visit w/Clinical Staff: 21-30 min Immunization / Flu Flu Vaccine in the Last 12 Months: No Flu Vaccine Exclusion Criteria: No Exclusion Criteria Past Medical History Past Medical History NEUROLOGIC: Negative Neurological Disorders CARDIAC: Positive Cardiac Disorders and Hypercholesterolemia; Negative Congestive Heart Failure RESPIRATORY: Negative Chronic Obstructive Pulmonary Disease (COPD) or Asthma GASTROINTESTINAL: Positive Gastrointestinal Disorders GENITOURINARY: Negative Genitourinary Disorders or Renal Disease MUSCULOSKELETAL: Positive Arthritis and Fractures ENDOCRINE: Positive Hypothyroidism (prev took meds. No longer taking); Negative Endocrine Disorders, Diabetes Mellitus Type 1 or Diabetes Mellitus Type 2 HEMATOLOGIC: Positive Anemia (d/t bleeding); Negative Blood Disorders or Sickle Cell Disease PSYCHO/SOCIAL: Positive Depression and Anxiety OTHER HISTORY: Positive Shingles, Chicken Pox, Mumps and Cancer; Negative Autoimmune Disease, Down Syndrome, Developmental Delay, Falls, Blood Transfusions, Anesthesia Reactions, MRSA, VRSA, Vancomycin-Resistant Enterococci or Clostridium Difficile Family History FAMILY HISTORY: Positive Family Cancer (sister ovarian, skin); Negative Family Psychiatric Problems, Family Respiratory Disorders, Family Cardiac Disorders, Family Gastrointestinal Problems, Family Surgery or Family Anesthesia Reaction Surgical History SURGICAL: Positive Angiogram and Hysterectomy; Negative Endocrine Surgery or Joint Replacement Social History SMOKING STATUS: Smoking status: Never smoker SECOND HAND EXPOSURE: second hand exposure: No ALCOHOL: Alcohol Intake: Current ALCOHOL FREQUENCY: Alcohol Intake Frequency: A Few Times a Month HOUSING: Housing: House LIVES WITH: Lives With: Spouse Patient Portal Questionaires PHQ-9 PHQ-2 Over the last 2 weeks, how often have you been bothered by any of the following problems? 1. Little interest or pleasure in doing things: not at all PHQ-9 8. Moving or speaking so slowly that other people could have noticed? - Or the opposite - being so fidgety or restless that you have been moving around a lot more than usual: not at all Source: Developed by Drs. Lc Bernard, Emerald Pires, Harman Collins and colleagues, with an educational francisco from [employer]. Social History Living Situation History Housing: House Tobacco History Smoking Status: Never smoker Second Hand Smoke Exposure: No Alcohol History Alcohol Intake: Current Alcohol Intake Frequency: A Few Times a Month Domestic Abuse History Do You Feel Safe at Home: Yes Review of Systems Report any current symptoms Only answer those that you have currently: Past Medical History Past Medical History Have you ever been diagnosed with any of the following: Cardiology Problems Hypercholesterolemia: Yes Congestive Heart Failure: No Respiratory Problems Chronic Obstructive Pulmonary Disease (COPD): No Asthma: No Genital/Urinary Problems Renal Disease: No Musculoskeletal Problems Arthritis: Yes Fractures: Yes Endocrine Problems Diabetes Mellitus Type 1: No Diabetes Mellitus Type 2: No Hypothyroidism: Yes (prev took meds. No longer taking) Blood Problems Anemia: Yes (d/t bleeding) Sickle Cell Disease: No Psychologic Problems Depression: Yes Anxiety: Yes Other Problems Autoimmune Disease: No Down Syndrome: No Developmental Delay: No Shingles: Yes Falls: No Blood Transfusions: No Anesthesia Reactions: No MRSA: No VRSA: No Vancomycin-Resistant Enterococci: No Chicken Pox: Yes Mumps: Yes Clostridium Difficile: No Cancer: Yes Surgical History Hysterectomy: Yes History of Present Illness HPI Narrative Ms. Ruff is a 64 year old female with past medical history significant for familial hyperlipidemia and single-vessel CAD s/p PCI in 2018 and depression was hospitalized on 01/01/25 for incidental mass found on MRI causing patient diplopia, ptosis and mydriasis. Patient had televisit appointment today to discuss her labs. Her HgbA1C was 10.9 and glucose 295. She reports ongoing myalgias but no polyuria or polydipsia. She continues to take dexamethazone taper, tomorrow her last day of 2 mg daily dose, she will then start 2 mg every other day for 1 week and will discontinue it as planned. She was scheduled for CT of orbits with contrast on April 25. Her vision was stable for the last 2-3 weeks with occasional diplopia. She does not want to start any diabetic medications and want to follow up her glucose levels after she finishes her steroids. Review of Systems Review of Systems Systems Reviewed: All systems reviewed, normal except as documented Objective/Exam Narrative Physical exam: televisit Assessment & Plan Diagnosis / Problem List (1) Cavernous sinus tumor: Status: Acute Assessment & Plan: Patient reports stable symptoms with occasional diplopia episodes. Plan: -Continue dexamethazone 2 mg daily, tomorrow start 2 mg every other day for 1 week as planned per taper, then discontinue. -Proceed with CT of orbits with contrast on April 25. -Follow up with neurology Dr Mart after imaging. (2) Hyperglycemia, drug-induced: Status: Acute Assessment & Plan: Labs showed HgbA1C 10.9%, glucose 295. Patient does not want to start diabetic medications and wants to follow up on her glucose level after she finishes steroids. Plan: -fasting glucose ordered for April 25. -follow up with [facility] on April 28. Additional Assessment Internal Medicine Attending Note: Patient examined and interviewed. Case discussed with and agree with note and management plan of Resident Physician as per Resident's Note above. Issues of concern for present visit are as follows: Follow-up visit. Noting perhaps slight improvement. Still notices some dizziness when having to move eyes rapidly (when she changes her focus quickly). Notes some occasional diplopia. Notes blurry vision at night when more fatigued. On examination, left pupil is reactive but still slightly dilated compared to the right eye. Lag in adduction is noted. Was seen by neurology. Cavernous sinus mass noted to be 10 x 18 mm. She has been referred by neurology to a neurosurgeon at [facility], Dr. Palma. Current dose of steroid is dexamethasone 2 mg twice daily. Continue this for now. Disability forms brought in. 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 Given her vision difficulties and dizziness, she is not able to do this job at this time. Konstantin Mitchell MD Additional Plan Plan of care discussed with attending Dr. Mitchell. Jewel Trejo MD, PGY 3. Disclaimer: This note was dictated by speech recognition. Minor errors in highway construction inspector may be present due to voice recognition software. Office Procedures [facility] Level of Care Telehealth Telemed Phone/Video with patient at home & Dr,PA,PLUMBER AND TINNER: Yes
== END 2025-04-14 11:09 | disposition home or self-care (01) ==
LOC: HODAHC 10:07
PROVIDERS: Supervising Provider Student in an Organized Health Care Education/Training Program; Visit Provider Student in an Organized Health Care Education/Training Program
DX: Z71.2 Person consulting for explanation of examination or test findings (principal); M79.10 Myalgia, unspecified site; H53.2 Diplopia; R73.9 Hyperglycemia, unspecified
CPT/HCPCS: 99212; G0463

== ENCOUNTER → 2025-04-25 | Outpatient (CLI) | payer BC, SELFPAY ==
[2025-04-25 17:42] LABS: Glucose,Fasting 189 mg/dL (74-106)
[2025-04-25 17:43] LABS: Glucose Estimated Average 237 mg/dL (80-131); Hemoglobin A1C 9.9 % Hgb (4.8-6.0)
== END | disposition home or self-care (01) ==
LOC: COPL 16:32
PROVIDERS: Referring Provider Student in an Organized Health Care Education/Training Program; Visit Provider Student in an Organized Health Care Education/Training Program
DX: R73.9 Hyperglycemia, unspecified (principal)
CPT/HCPCS: 36415; 82947; 83036

== ENCOUNTER 2025-04-28 10:37 | Outpatient (AMB) | payer BC, SELFPAY ==
[2025-04-28 11:24] VITALS: BP 104/68; PULSE 77; RESP 19; TEMP 36.3; O2SAT 94; BMI 31.0
--- NOTE | 2025-04-28 11:24 | PD.RESCLINIC ---
Vital Signs 04/28/25 11:24 Height 1.63 m Height Method Stated Weight 82.554 kg Weight Measurement Method Standing Scale BMI 31.0 BP 104/68 Blood Pressure Source Automatic Cuff Blood Pressure Location Right Upper Arm Position Sitting Respiration 19 Pulse 77 Pulse Source Monitor Temp 97.4 F Temp Source Temporal Artery Scan Pulse Oximetry (%) 94 L Oxygen Delivery Method Room Air Allergies/Meds Allergies & Medications Allergies No Known Allergies Allergy (Verified 03/31/25 11:14) MA Intake Visit Data Collection New Patient or Established: Established Patient (seen at [facility] within 3 years) Seen by Clinical Staff ONLY (RN/MA): No Reason for Visit:: LAB RESULTS Pain Present Currently: No Top Knitter Required: No PCP or OBGYN visit in last 3 months: Yes Do You Feel Safe at Home: Yes Authorities Contacted: N/A Smoking Status Smoking Status: Never smoker Immunization / Flu Flu Vaccine in the Last 12 Months: No Flu Vaccine Exclusion Criteria: No Exclusion Criteria Past Medical History Past Medical History NEUROLOGIC: Negative Neurological Disorders CARDIAC: Positive Cardiac Disorders and Hypercholesterolemia; Negative Congestive Heart Failure RESPIRATORY: Negative Chronic Obstructive Pulmonary Disease (COPD) or Asthma GASTROINTESTINAL: Positive Gastrointestinal Disorders GENITOURINARY: Negative Genitourinary Disorders or Renal Disease MUSCULOSKELETAL: Positive Arthritis and Fractures ENDOCRINE: Positive Hypothyroidism (prev took meds. No longer taking); Negative Endocrine Disorders, Diabetes Mellitus Type 1 or Diabetes Mellitus Type 2 HEMATOLOGIC: Positive Anemia (d/t bleeding); Negative Blood Disorders or Sickle Cell Disease PSYCHO/SOCIAL: Positive Depression and Anxiety OTHER HISTORY: Positive Shingles, Chicken Pox, Mumps and Cancer; Negative Autoimmune Disease, Down Syndrome, Developmental Delay, Falls, Blood Transfusions, Anesthesia Reactions, MRSA, VRSA, Vancomycin-Resistant Enterococci or Clostridium Difficile Family History FAMILY HISTORY: Positive Family Cancer (sister ovarian, skin); Negative Family Psychiatric Problems, Family Respiratory Disorders, Family Cardiac Disorders, Family Gastrointestinal Problems, Family Surgery or Family Anesthesia Reaction Surgical History SURGICAL: Positive Angiogram and Hysterectomy; Negative Endocrine Surgery or Joint Replacement Social History SMOKING STATUS: Smoking status: Never smoker SECOND HAND EXPOSURE: second hand exposure: No ALCOHOL: Alcohol Intake: Current ALCOHOL FREQUENCY: Alcohol Intake Frequency: A Few Times a Month HOUSING: Housing: House LIVES WITH: Lives With: Spouse Patient Portal Questionaires PHQ-9 PHQ-2 Over the last 2 weeks, how often have you been bothered by any of the following problems? 1. Little interest or pleasure in doing things: not at all PHQ-9 8. Moving or speaking so slowly that other people could have noticed? - Or the opposite - being so fidgety or restless that you have been moving around a lot more than usual: not at all Source: Developed by Drs. Lc Bernard, Emerald Pires, Harman Collins and colleagues, with an educational francisco from [employer]. Social History Living Situation History Housing: House Tobacco History Smoking Status: Never smoker Second Hand Smoke Exposure: No Alcohol History Alcohol Intake: Current Alcohol Intake Frequency: A Few Times a Month Domestic Abuse History Do You Feel Safe at Home: Yes Review of Systems Report any current symptoms Only answer those that you have currently: Past Medical History Past Medical History Have you ever been diagnosed with any of the following: Cardiology Problems Hypercholesterolemia: Yes Congestive Heart Failure: No Respiratory Problems Chronic Obstructive Pulmonary Disease (COPD): No Asthma: No Genital/Urinary Problems Renal Disease: No Musculoskeletal Problems Arthritis: Yes Fractures: Yes Endocrine Problems Diabetes Mellitus Type 1: No Diabetes Mellitus Type 2: No Hypothyroidism: Yes (prev took meds. No longer taking) Blood Problems Anemia: Yes (d/t bleeding) Sickle Cell Disease: No Psychologic Problems Depression: Yes Anxiety: Yes Other Problems Autoimmune Disease: No Down Syndrome: No Developmental Delay: No Shingles: Yes Falls: No Blood Transfusions: No Anesthesia Reactions: No MRSA: No VRSA: No Vancomycin-Resistant Enterococci: No Chicken Pox: Yes Mumps: Yes Clostridium Difficile: No Cancer: Yes Surgical History Hysterectomy: Yes History of Present Illness HPI Narrative Ms. Ruff is a 64 year old female with past medical history significant for familial hyperlipidemia and single-vessel CAD angio was done in 2019, depression was hospitalized on 01/01/25 for incidental mass found on MRI causing patient diplopia, pstosis and mydriasis. 01/16/25: [facility]. Pt continues to have diplopia, pstosis has slight improvement. Pt saw Dr. Mart yesterday, all tests were within normal findins with the exception mildy elevated protein in CSF fluid. Pt's cocci is negative. Dr. Mart has ordered repeat MRI with and without contrast with higher resolution [place], Pt's case is also discussed with Dr. Ngo at [facility] for further evaluation and work up. Due to steroids, which is renewed for additional [address] Mart, Pt has noticed increased GERD and will order omeprazole to take on empty stomach. pt is provided work release document through March 10. will follow up after pt sees Dr. Mart on February 04 with MRI results. 01/30/25: Patient was seen and examined at clinic. She reports her symptoms improved dramatically and now she can fully open left eye, her pupil is still slightly more dilated then right and she has a eyelid lag when opens eyes and delay in eye adduction, but she does not have double vision all the time as before. She continue dexamethazone 4 mg BID as per Dr. Mart. She is scheduled for MRI in February and follow up with neurology. 02/27/25: Patient was seen and examined at clinic. She was evaluated today by neurology Dr. Mart. She reports she recently recovered from URI and also developed mouth ulcers, therefore Dr. Mart reduced dose of dexamethazone to 2 mg BID. She also underwent high resolution MRI showing 14 mm multilobulated mildly enhancing lesion as compared to MRI from 01/01/25 lesion was [id number]; MRI was also seen by Dr. Mart and she referred patient to neurosurgeon in [facility] Dr. Palma for evaluation. Patient reports her symptoms are stable and unchanged from prior visit, she still has occasional diplopia and has constant blurry vision at night. Her left pupil is reactive but is still slightly dilated in comparison to the right eye and there is a lag in adduction, unchanged from prior visit. She will follow up with Dr. Mart and [facility] after her appointment with neurosurgeon. 03/31/25- Pt is in office for follow up appointment. Pt is still waiting for insurance approval to get CT W/WO contrast of the orbit and then will follow up with neurosurgeon in [place]. Pt does endorse to improvement in the ptosis and mydriasis. Pt is continuing steroids, however feels like she has been having a lot of side affects including weight gain, and mood changes. pt also has an appointment with Dr. Avery later today. Pt LE edema has improved since starting lasix. 04/14/25- Patient had televisit appointment today to discuss her labs. Her HgbA1C was 10.9 and glucose 295. She reports ongoing myalgias but no polyuria or polydipsia. She continues to take dexamethasone taper, tomorrow her last day of 2 mg daily dose, she will then start 2 mg every other day for 1 week and will discontinue it as planned. She was scheduled for CT of orbits with contrast on April 25. Her vision was stable for the last 2-3 weeks with occasional diplopia. She does not want to start any diabetic medications and want to follow up her glucose levels after she finishes her steroids. 04/28/25- Pt is in office for follow up appointment. repeat labs showed fasting glucose of 237, A1c 9.9. Pt has completed her steroids. Currently endorses to significant improvement in her symptoms however pt does feel like she has gained significant amount of weight and ocean transportation intermediary use of high dose steroids have contributed to her hyperglycemia. Pt is also Currently taking lasix 20mg daily, dexamethasone on Tuesdays only. Pt has experienced some headaches and some nausea but no other withdrawal symptoms. Pt underwent CT with contrast on 04/25/25 and has a follow up appointment with Dr. Valdez at 2pm today. discussed with pt diabetic medications as pt's repeat labs continues to have high A1c. Pt is agreeable to starting metformin 500mg BID and rybalsus 3mg daily. Review of Systems Review of Systems Systems Reviewed: All systems reviewed, normal except as documented Objective/Exam Narrative Physical exam: GENERAL: A&Ox3 . Awake, Not in acute distress NEURO: no focal neurological deficits HEENT: Atraumatic, Normocephalic. mucous membranes moist. Eyes open, symmetrical, & clear HEART: Normal Heart Sounds LUNGS: Clear to auscultation with no wheezing or crackles. ABDOMEN: soft, non-distended, non-tender, bowel sounds heard, no guarding or rebound tenderness SKIN: No Rash or ecchymoses EXTREMITIES: No edema, tenderness, able to move all 4 extremities, pedal pulses palpated Assessment & Plan Diagnosis / Problem List (1) Cavernous sinus tumor: Status: Acute Assessment & Plan: Patient reports stable symptoms with occasional diplopia episodes. Plan: -Continue dexamethasone 2 mg on tuesdays only -CT of orbits with and without contrast is completed on April 25, pending Evaluation with Dr. Mart -Follow up with neurology Dr Mart -Obtain referral to Dr. Palma in [place] (2) Hyperglycemia, drug-induced: Status: Acute Assessment & Plan: Labs showed HgbA1C 9.9%, Fasting glucose 189. -Likely secondary to longerterm use of high dose Dexamethasone Plan: -Start metformin 500mg BID and rybalsus 3mg daily. -Will repeat A1c in 3 months Additional Assessment Attending note: I, Konstantin Mitchell MD, attest that I was physically present for the mccoy portions of the service and evaluated the patient with the resident and I reviewed and discussed the case with the resident and agree with the resident's findings and plans of care as documented above. Konstantin Mitchell MD Physician Billing Established Patient Established Patient: E/M Level 3-CPT 41383 Office Procedures [facility] Level of Care Nursing/Assessment Patient Status: Established Patient Nursing Assessment/Reassessment: Medication Reconciliation, Update PMH in EMR and Vital Signs Coordination of Care: Complex Care and Chronic Disease 1-5, Consent,records obtained, informed consent, Lab and Imaging orders and Results/Orders obtained Established Patient Charge Established Patient Point Assignment: 80 Established Patient Point Charge: Level 3 (80-115)
== END 2025-04-28 11:58 | disposition home or self-care (01) ==
DX: E11.65 Type 2 diabetes mellitus with hyperglycemia (principal); T38.0X5D Adverse effect of glucocorticoids and synthetic analogues, subsequent encounter; R51.9 Headache, unspecified; R11.0 Nausea; D49.89 Neoplasm of unspecified behavior of other specified sites
CPT/HCPCS: 99213; G0463

== ENCOUNTER 2025-08-06 13:29 | Outpatient (AMB) | payer BC, SELFPAY ==
[2025-08-06 13:42] VITALS: BP 117/75; PULSE 69; RESP 16; TEMP 36.3; O2SAT 97; BMI 30.4
--- NOTE | 2025-08-06 13:42 | ACNOTE_ITS ---
Vital Signs 08/06/25 13:42 Height 1.63 m Height Method Stated Weight 80.853 kg Weight Measurement Method Standing Scale BMI 30.4 BP 117/75 Blood Pressure Source Automatic Cuff Blood Pressure Location Right Upper Arm Position Sitting Respiration 16 Pulse 69 Pulse Source Monitor Temp 97.4 F Temp Source Temporal Artery Scan Pulse Oximetry (%) 97 Oxygen Delivery Method Room Air Allergies/Meds Allergies & Medications Allergies No Known Allergies Allergy (Verified 08/06/25 13:43) Medication Reconciliation aspirin 81 mg capsule 81 mg PO QDAY 01/01/25 [History Confirmed 08/06/25] atorvastatin 80 mg tablet 80 mg PO QDAY 01/01/25 [History Confirmed 08/06/25] bupropion HCl 150 mg tablet,12 hr sustained-release See Rx Instructions .Route .COMPLEX 01/01/25 [History Confirmed 08/06/25] evolocumab 140 mg/mL subcutaneous syringe (Repatha Syringe) 420 mg subcut .[id number] 01/01/25 [History Confirmed 08/06/25] ezetimibe 10 mg tablet (Zetia) 10 mg PO QDAY 01/01/25 [History Confirmed 08/06/25] famotidine 10 mg tablet 10 mg PO QDAY 01/01/25 [History Confirmed 08/06/25] fluoxetine 10 mg capsule 20 mg PO QDAY 01/01/25 [History Confirmed 08/06/25] fluoxetine 20 mg capsule 10 mg PO QDAY 01/01/25 [History Confirmed 08/06/25] gabapentin 600 mg tablet 900 mg PO HS 01/01/25 [History Confirmed 08/06/25] metoprolol succinate 25 mg tablet,extended release 24 hr 25 mg PO QDAY 01/01/25 [History Confirmed 08/06/25] omeprazole 20 mg capsule,delayed release 20 mg PO QDAY #30 caps 01/16/25 [Rx Confirmed 08/06/25] lidocaine HCl 2 % mucosal solution 1 applic mucous membrane QDAY PRN pain #100 mL 03/31/25 [Rx Confirmed 08/06/25] blood-glucose meter (Advanced All-in-One Glucose Meter kit) #1 ea 04/28/25 [Rx Confirmed 08/06/25] furosemide 20 mg tablet (Lasix) 20 mg PO QAM #30 tabs 04/28/25 [Rx Confirmed 08/06/25] blood-glucose meter (Accu-Chek Guide Glucose Meter) #1 ea 05/01/25 [Rx Confirmed 08/06/25] semaglutide 3 mg tablet (Rybelsus) 3 mg PO QDAY 30 days #30 tabs 05/01/25 [Rx Confirmed 08/06/25] ondansetron HCl 4 mg tablet 4 mg PO Q8H PRN nausea and vomiting #30 tabs 05/16/25 [Rx Confirmed 08/06/25] blood sugar diagnostic (Accu-Chek Guide test strips) #100 ea 08/06/25 [Rx] lancets 31 gauge (Comfort Touch Ultra Thin Lancets) #100 ea 08/06/25 [Rx] metformin 500 mg tablet 500 mg PO BID 30 days #60 tabs 08/06/25 [Rx] MA Intake Visit Data Collection New Patient or Established: Established Patient (seen at [facility] within 3 years) Seen by Clinical Staff ONLY (RN/MA): No Pain Present Currently: No Pain scale:: 0 Pain Scale Used: Barr-Babin/Numerical Build Automation Engineer Required: No PCP or OBGYN visit in last 3 months: Yes Hx Now: No Do You Feel Safe at Home: Yes Authorities Contacted: N/A Smoking Status Smoking Status: Never smoker Immunization / Flu Flu Vaccine in the Last 12 Months: Yes Date of most recent flu vaccination: 07/03/25 Flu Vaccine Exclusion Criteria: No Exclusion Criteria Past Medical History Past Medical History NEUROLOGIC: Negative Neurological Disorders CARDIAC: Positive Cardiac Disorders and Hypercholesterolemia; Negative Congestive Heart Failure RESPIRATORY: Negative Chronic Obstructive Pulmonary Disease (COPD) or Asthma GASTROINTESTINAL: Positive Gastrointestinal Disorders GENITOURINARY: Negative Genitourinary Disorders or Renal Disease MUSCULOSKELETAL: Positive Arthritis and Fractures ENDOCRINE: Positive Hypothyroidism (prev took meds. No longer taking); Negative Endocrine Disorders, Diabetes Mellitus Type 1 or Diabetes Mellitus Type 2 HEMATOLOGIC: Positive Anemia (d/t bleeding); Negative Blood Disorders or Sickle Cell Disease PSYCHO/SOCIAL: Positive Depression and Anxiety OTHER HISTORY: Positive Shingles, Chicken Pox, Mumps and Cancer; Negative Autoimmune Disease, Down Syndrome, Developmental Delay, Falls, Blood Transfusions, Anesthesia Reactions, MRSA, VRSA, Vancomycin-Resistant Enterococci or Clostridium Difficile Family History FAMILY HISTORY: Positive Family Cancer (sister ovarian, skin); Negative Family Psychiatric Problems, Family Respiratory Disorders, Family Cardiac Disorders, Family Gastrointestinal Problems, Family Surgery or Family Anesthesia Reaction Surgical History SURGICAL: Positive Angiogram and Hysterectomy; Negative Endocrine Surgery or Joint Replacement Social History SMOKING STATUS: Smoking status: Never smoker SECOND HAND EXPOSURE: second hand exposure: No ALCOHOL: Alcohol Intake: Current ALCOHOL FREQUENCY: Alcohol Intake Frequency: A Few Times a Month HOUSING: Housing: House LIVES WITH: Lives With: Spouse Patient Portal Questionaires PHQ-9 PHQ-2 Over the last 2 weeks, how often have you been bothered by any of the following problems? 1. Little interest or pleasure in doing things: not at all 2. Feeling down, depressed, or hopeless: not at all Total score: 0 PHQ-9 8. Moving or speaking so slowly that other people could have noticed? - Or the opposite - being so fidgety or restless that you have been moving around a lot more than usual: not at all Source: Developed by Drs. Lc Bernard, Emerald Pires, Harman Collins and colleagues, with an educational francisco from [employer]. Social History Living Situation History Housing: House Tobacco History Smoking Status: Never smoker Second Hand Smoke Exposure: No Alcohol History Alcohol Intake: Current Alcohol Intake Frequency: A Few Times a Month Domestic Abuse History Do You Feel Safe at Home: Yes Review of Systems Report any current symptoms Only answer those that you have currently: Past Medical History Past Medical History Have you ever been diagnosed with any of the following: Cardiology Problems Hypercholesterolemia: Yes Congestive Heart Failure: No Respiratory Problems Chronic Obstructive Pulmonary Disease (COPD): No Asthma: No Genital/Urinary Problems Renal Disease: No Musculoskeletal Problems Arthritis: Yes Fractures: Yes Endocrine Problems Diabetes Mellitus Type 1: No Diabetes Mellitus Type 2: No Hypothyroidism: Yes (prev took meds. No longer taking) Blood Problems Anemia: Yes (d/t bleeding) Sickle Cell Disease: No Psychologic Problems Depression: Yes Anxiety: Yes Other Problems Autoimmune Disease: No Down Syndrome: No Developmental Delay: No Shingles: Yes Falls: No Blood Transfusions: No Anesthesia Reactions: No MRSA: No VRSA: No Vancomycin-Resistant Enterococci: No Chicken Pox: Yes Mumps: Yes Clostridium Difficile: No Cancer: Yes Surgical History Hysterectomy: Yes History of Present Illness HPI Narrative Ms. Ruff is a 64 year old female with past medical history significant for familial hyperlipidemia and single-vessel CAD angio was done in 2019, depression was hospitalized on 01/01/25 for incidental mass found on MRI causing patient diplopia, pstosis and mydriasis. 01/16/25: [facility] post hospitalization. Pt continues to have diplopia, pstosis has slight improvement. Pt saw Dr. Mart yesterday, all tests were within normal findins with the exception mildy elevated protein in CSF fluid. Pt's cocci is negative. Dr. Mart has ordered repeat MRI with and without contrast with higher resolution [place], Pt's case is also discussed with Dr. Ngo at [facility] for further evaluation and work up. Due to steroids, which is renewed for additional [address] Mart, Pt has noticed increased GERD and will order omeprazole to take on empty stomach. pt is provided work release document through March 10. will follow up after pt sees Dr. Mart on February 04 with MRI results. 01/30/25: Patient was seen and examined at clinic. She reports her symptoms improved dramatically and now she can fully open left eye, her pupil is still slightly more dilated then right and she has a eyelid lag when opens eyes and delay in eye adduction, but she does not have double vision all the time as before. She continue dexamethazone 4 mg BID as per Dr. Mart. She is scheduled for MRI in February and follow up with neurology. 02/27/25: Patient was seen and examined at clinic. She was evaluated today by neurology Dr. Mart. She reports she recently recovered from URI and also developed mouth ulcers, therefore Dr. Mart reduced dose of dexamethazone to 2 mg BID. She also underwent high resolution MRI showing 14 mm multilobulated mildly enhancing lesion as compared to MRI from 01/01/25 lesion was [id number]; MRI was also seen by Dr. Mart and she referred patient to neurosurgeon in [facility] Dr. Palma for evaluation. Patient reports her symptoms are stable a nd unchanged from prior visit, she still has occasional diplopia and has constant blurry vision at night. Her left pupil is reactive but is still slightly dilated in comparison to the right eye and there is a lag in adduction, unchanged from prior visit. She will follow up with Dr. Mart and [facility] after her appointment with neurosurgeon. 03/31/25- Pt is in office for follow up appointment. Pt is still waiting for insurance approval to get CT W/WO contrast of the orbit and then will follow up with neurosurgeon in [place]. Pt does endorse to improvement in the ptosis and mydriasis. Pt is continuing steroids, however feels like she has been having a lot of side affects including weight gain, and mood changes. pt also has an appointment with Dr. Avery later today. Pt LE edema has improved since starting lasix. 04/14/25- Patient had televisit appointment today to discuss her labs. Her HgbA1C was 10.9 and glucose 295. She reports ongoing myalgias but no polyuria or polydipsia. She continues to take dexamethasone taper, tomorrow her last day of 2 mg daily dose, she will then start 2 mg every other day for 1 week and will discontinue it as planned. She was scheduled for CT of orbits with contrast on April 25. Her vision was stable for the last 2-3 weeks with occasional diplopia. She does not want to start any diabetic medications and want to follow up her glucose levels after she finishes her steroids. 04/28/25- Pt is in office for follow up appointment. repeat labs showed fasting glucose of 237, A1c 9.9. Pt has completed her steroids. Currently endorses to significant improvement in her symptoms however pt does feel like she has gained significant amount of weight and prison use of high dose steroids have contributed to her hyperglycemia. Pt is also Currently taking lasix 20mg daily, dexamethasone on Tuesdays only. Pt has experienced some headaches and some nausea but no other withdrawal symptoms. Pt underwent CT with contrast on 04/25/25 and has a follow up appointment with Dr. Valdez at 2pm today. discussed with pt diabetic medications as pt's repeat labs continues to have high A1c. Pt is agreeable to starting metformin 500mg BID and rybalsus 3mg daily. 08/06/2025 patient was seen in the office for follow-up appointment. She reports she discontinued the Rybelsus due to diarrhea. She continues to take metformin 500 mg twice a day. She had labs done 1 months ago and her A1c at that time was 6.8. She is tolerating fine metformin. She is followed by neurosurgeon Dr. Palma and neurology Dr Mart. Her eye symptoms completely resolved. She is not taking steroids anymore. Will continue current management with metformin 500 mg twice daily and will follow-up her A1c in September with her physician. Will schedule follow-up in 6 months. Review of Systems Review of Systems Systems Reviewed: All systems reviewed, normal except as documented Objective/Exam Narrative Physical exam: Gen: Well-developed and well-nourished female. HEENT: NCAT, PERRLA, EOMI, MMM, anicteric conjunctivae. CVS: normal S1 and S2. RRR. No M/R/G. Resp: CTA B/L. No rhonchi, rales, crackles or wheezing. Abd: soft, obese, non-tender, non-distended. BS+ in all 4 quadrants. MSK: Good ROM in BUE & BLE. No edema or rash. Neuro: CN II-XII grossly intact. Strength 5/5 in BUE & BLE. Alert and oriented x3. Psych: appropriate mood and affect. Assessment & Plan Diagnosis / Problem List (1) Cavernous sinus tumor: Status: Acute Assessment & Plan: Patient reports resolution of symptoms. Steroids were discontinued. Plan: -Follow up with neurology Dr. Mart and neurosurgery Dr. Palma. (2) Hyperglycemia, drug-induced: Status: Acute Assessment & Plan: Per patient A1C 1 month ago was 6.8%, her random FSG is around 100-125. Rybalsus was discontinued due to diarrhea. Patient wants to continue metformin only and follow up. Plan: -continue metformin 500mg BID. -Will repeat A1c in September 2025. Plan Plan of care discussed with attending Dr. Londono. Jewel Trejo MD, PGY 3. Disclaimer: This note was dictated by speech recognition. Minor errors in new client banking services clerk may be present due to voice recognition software. Advanced Care Planning Advance care planning discussed with:: patient Office Procedures [facility] Level of Care Nursing/Assessment Patient Status: Established Patient Nursing Assessment/Reassessment: Medication Reconciliation, Update PMH in EMR and Vital Signs Coordination of Care: Complex Care and Chronic Disease 1-5, Complex Care/Chronic Disease 5 or more, Consent,records obtained, informed consent, Lab and Imaging orders, Results/Orders obtained and Staff clarify orders Established Patient Charge Established Patient Point Assignment: 125 Established Patient Point Charge: EP Level 4 (120-155)
== END 2025-08-06 13:57 | disposition home or self-care (01) ==
LOC: HODAHC 13:29
PROVIDERS: Referring Provider Student in an Organized Health Care Education/Training Program; Supervising Provider Internal Medicine; Visit Provider Student in an Organized Health Care Education/Training Program
DX: E11.65 Type 2 diabetes mellitus with hyperglycemia (principal); R19.7 Diarrhea, unspecified; T50.995A Adverse effect of other drugs, medicaments and biological substances, initial encounter; E78.5 Hyperlipidemia, unspecified
CPT/HCPCS: 99214; G0463